=== PATIENT | male | born 1950 | race Two or more races ===

== ENCOUNTER 2022-02-09 12:11 | Inpatient (IN) | payer MEDICARE ==
[~2022-02-09] VITALS: Ht 167.6 cm; Wt 75.7 kg
--- NOTE | 2022-02-09 12:22 | NUR ---
[id number] FROM HOME C/O HEADCHE, NAUSEA, DIZZINESS P/S 8/10 SINCE LAST NIGHT. TO ER BED 12.
--- NOTE | 2022-02-09 12:50 | NUR ---
DR DONAHUE AT BEDSIDE FOR EVAL
[2022-02-09] MEDS ORDERED: ONDANSETRON HCL/PF 4 MG/2 ML VIAL IVP ONE (13:00)
[2022-02-09] MEDS ORDERED: IV NS 0.9% 1,000 ML BAG IV ONE ×2 (13:00→14:00)
[2022-02-09] MEDS ORDERED: MORPHINE SULFATE INJ 2 MG/ML DISP.SYRIN IV ONE (13:00)
[2022-02-09] MEDS ORDERED: MORPHINE SULFATE INJ 2 MG/ML DISP.SYRIN ONE (13:02)
[2022-02-09] MEDS ORDERED: ONDANSETRON HCL/PF 4 MG/2 ML VIAL ONE (13:02)
--- NOTE | 2022-02-09 13:20 | NUR ---
IV LINE ESTABLISHED ON LAC #20, BLOOD DRAWN AND SENT TO LAB
[2022-02-09 13:24] LABS: BASOPHILS % (AUTO) 0.1 % (0.0-2.0); HEMATOCRIT 36 % (39-51); HEMOGLOBIN 12.4 g/dL (13.5-17.5); LYMPHOCYTES # (AUTO) 0.4 K/uL (0.8-4.8); LYMPHOCYTES % (AUTO) 5.1 % (20.0-44.0); MEAN CORPUSCULAR HGB CONC 34 g/dl (31.0-36.0); MEAN CORPUSCULAR VOLUME 86 fL (80-96); MONOCYTES # (AUTO) 0.6 K/uL (0.1-1.30); MONOCYTES % (AUTO) 7.2 % (2.0-12.0); NEUTROPHILS # (AUTO) 7.7 K/uL (1.8-8.9); NEUTROPHILS % (AUTO) 87.6 % (43.0-81.0); PLATELET COUNT (AUTO) 223 K/uL (150-450); RED BLOOD CELL COUNT(AUTO) 4.23 MIL/uL (4.5-6.0); WHITE BLOOD COUNT (AUTO) 8.8 K/uL (4.3-11.0)
[2022-02-09 13:41] LABS: ALANINE AMINOTRANSFERASE 32 U/L (12-78); ALBUMIN 4.2 g/dL (3.4-5.0); ALKALINE PHOSPHATASE 39 U/L (46-116); ASPARTATE AMINOTRANSFERASE 28 U/L (15-37); BILIRUBIN,DIRECT 0.3 mg/dL (0.0-0.2); BILIRUBIN,TOTAL 0.8 mg/dL (0.2-1.0); CALCIUM, SERUM 8.6 mg/dL (8.5-10.1); GLUCOSE 222 mg/dL (74-106); LIPASE 153 U/L (73-393); UREA NITROGEN, BLOOD 7 mg/dL (7-18)
[2022-02-09 13:45] LABS: CARBON DIOXIDE 25 mmol/L (21-32); POTASSIUM 4.4 mmol/L (3.5-5.1)
[2022-02-09 13:50] LABS: CHLORIDE 76 mmol/L (98-107); SODIUM SERUM 107 mmol/L (136-145)
--- NOTE | 2022-02-09 13:51 | NUR ---
NA-107, CL-76; DR DONAHUE MADE AWARE
--- NOTE | 2022-02-09 14:34 | NUR ---
COVID SWAB COLLECTED AND SENT TO LAB
--- NOTE | 2022-02-09 14:40 | NUR ---
PT TAKEN TO RADIOLOGY FOR CT
[2022-02-09] MEDS ORDERED: IV NS 0.9% 250 ML IV ONE (14:41)
[2022-02-09] MEDS ORDERED: IOHEXOL-300 100 ML VIAL IV ONE (14:41)
[2022-02-09] MEDS ORDERED: CT SWABBABLE VALVE TRANS SET 1 EA INFUS.SET MC ONE (14:41)
--- NOTE | 2022-02-09 15:14 | NUR ---
[facility] called, on hold for dr. johnson.
--- NOTE | 2022-02-09 15:15 | NUR ---
awaiting hospitalist call back.
--- NOTE | 2022-02-09 15:20 | NUR ---
SEEN BY DR NOVAK
--- NOTE | 2022-02-09 15:38 | NUR ---
called nursing supervisor anodizing for telemetry bed.
[2022-02-09] MEDS ORDERED: BENA20TA9 PO (15:50)
[2022-02-09] MEDS ORDERED: CHOL4PAC PO (15:50)
[2022-02-09] MEDS ORDERED: TAMS-12 PO (15:50)
[2022-02-09] MEDS ORDERED: SITA100T PO (15:50)
[2022-02-09] MEDS ORDERED: ATOR40TA PO (15:50)
[2022-02-09] MEDS ORDERED: PIOG45TA5 PO (15:50)
[2022-02-09 16:12] LABS: CALCIUM, SERUM 8.4 mg/dL (8.5-10.1); CREATININE 1.1 mg/dL (0.6-1.3); POTASSIUM 4.3 mmol/L (3.5-5.1)
--- NOTE | 2022-02-09 17:13 | NUR ---
PT'S ADDRESS: [address] [place] [address] [id number] [facility] [id number]
--- NOTE | 2022-02-09 17:21 | NUR ---
PT STATES THAT HE IS SINGLE AND DOES NOT HAVE ANY FAMILY.
[2022-02-09] MEDS ORDERED: HYDROCODONE/APAP 5/325MG TABLET PO PRN (17:30)
[2022-02-09] MEDS ORDERED: MAGNESIUM HYDROXIDE 30 ML UDC PO PRN (17:30)
[2022-02-09] MEDS ORDERED: Z GUARD REMEDY 4 OZ OINT TP PRN (17:30)
[2022-02-09] MEDS ORDERED: MAG HYDROX/AL HYDROX/SIMETH 30 ML UDC PO PRN (17:30)
[2022-02-09] MEDS ORDERED: DEXTROSE 50%-WATER 50 ML DISP.SYRIN IV PRN (17:30)
[2022-02-09] MEDS ORDERED: ONDANSETRON HCL/PF 4 MG/2 ML VIAL IVP PRN (17:30)
[2022-02-09] MEDS ORDERED: IV NS 0.9% 1,000 ML IV PRN (17:30)
[2022-02-09] MEDS ORDERED: ACETAMINOPHEN 325 MG TABLET PO PRN (17:30)
--- NOTE | 2022-02-09 17:37 | NUR ---
CALLED JANET JAMESON [phone], LEFT VOICEMAIL
[2022-02-09] MEDS: BLOOD SUGAR DIAGNOSTIC 1 EACH STRIP IN SCH ×2 (17:38→23:11)
--- NOTE | 2022-02-09 18:27 | NUR ---
TRIED TO CALL JOSE JAMESON [phone], PHONE NUMBER NOT WORKING.
--- NOTE | 2022-02-09 18:43 | NUR ---
DINNER TRAY PROVIDED TO PTCHELSI
--- NOTE | 2022-02-09 19:02 | NUR ---
RECEIVED ORDER FROM DR. MORGAN: D/C NS AND CHANGE TO 3%NS AT 50ML/HR, ORDER READ BACK AND VERIFIED
[2022-02-09] MEDS ORDERED: OLANZAPINE 10 MG VIAL IM ONE ×2 (19:07→19:30)
[2022-02-09] MEDS ORDERED: SODIUM CHLORIDE 3% IV PRN (19:30)
--- NOTE | 2022-02-09 19:31 | NUR ---
IFC INSERTED F16
[2022-02-09 20:11] LABS: CREATININE, URINE 56.7 MG/DL (30.0-125.0)
[2022-02-09] MEDS ORDERED: TAMSULOSIN 0.4 MG CAP.SR.24H ONE (23:09)
[2022-02-09] MEDS ORDERED: ATORVASTATIN 40 MG TABLET ONE (23:09)
[2022-02-09] MEDS: TAMSULOSIN 0.4 MG CAP.SR.24H PO SCH (23:14)
[2022-02-09] MEDS: ATORVASTATIN 40 MG TABLET PO SCH (23:14)
--- NOTE | 2022-02-09 23:27 | NUR ---
OFFERED PT WATER, PT TOLERATED WELL.
[2022-02-09] MEDS ORDERED: IV Sodium Chloride 3% 500 ML 500 ML IV ONE (23:29)
--- NOTE | 2022-02-09 23:30 | NUR ---
0.3% NACL STARTED. ONLY 500ML/BAG SUPPLY GIVEN BY KINESIOLOGIST VIV WE DONT HAVE AVAILABLE AT HOSPITAL.
--- NOTE | 2022-02-10 02:00 | NUR ---
RESTRAINTS REMOVED 2 STAFF ASSISTED PT TO RESTROOM BECAUSE HE SAID HE WANTS TO PASS STOOL. WHILE IN RESTROOM, PT DOESNT WANT TO PASS STOOL. HE JUST WANTS TO GET OUT OF HOSPITAL. ASSISTED PT BACK TO BED. HE TRIED TO STAND UP AND LEAVE. PLACED HIM COMFORTABLY IN BED AND ATTACHED TO MONITOR.
[2022-02-10 05:05] LABS: BASOPHILS % (AUTO) 0.1 % (0.0-2.0); HEMATOCRIT 33 % (39-51); HEMOGLOBIN 11.3 g/dL (13.5-17.5); LYMPHOCYTES # (AUTO) 0.6 K/uL (0.8-4.8); LYMPHOCYTES % (AUTO) 4.9 % (20.0-44.0); MEAN CORPUSCULAR HGB CONC 34 g/dl (31.0-36.0); MEAN CORPUSCULAR VOLUME 86 fL (80-96); MONOCYTES # (AUTO) 1.2 K/uL (0.1-1.30); MONOCYTES % (AUTO) 9.8 % (2.0-12.0); NEUTROPHILS # (AUTO) 10.7 K/uL (1.8-8.9); NEUTROPHILS % (AUTO) 85.2 % (43.0-81.0); PLATELET COUNT (AUTO) 197 K/uL (150-450); RED BLOOD CELL COUNT(AUTO) 3.87 MIL/uL (4.5-6.0); WHITE BLOOD COUNT (AUTO) 12.6 K/uL (4.3-11.0)
[2022-02-10 05:21] LABS: CALCIUM, SERUM 8.4 mg/dL (8.5-10.1); CREATININE 1.2 mg/dL (0.6-1.3); MAGNESIUM 1.5 mg/dL (1.8-2.4); PHOSPHORUS 2.9 mg/dL (2.5-4.9); POTASSIUM 4.1 mmol/L (3.5-5.1)
[2022-02-10] MEDS: BLOOD SUGAR DIAGNOSTIC 1 EACH STRIP IN SCH ×4 (07:41→21:51)
[2022-02-10] MEDS ORDERED: PANTOPRAZOLE 40 MG TABLET.DR PO ONE (07:47)
[2022-02-10] MEDS: PANTOPRAZOLE 40 MG TABLET.DR PO SCH (07:47)
[2022-02-10] MEDS ORDERED: IV D5W 500 ML IV ONE (08:00)
--- NOTE | 2022-02-10 08:34 | NUR ---
BED 109
--- NOTE | 2022-02-10 08:43 | NUR ---
REPORT GIVEN TO ARNULFO MELCHOR FOR CARMEN
[2022-02-10 09:15] VITALS: BP 131/58
--- NOTE | 2022-02-10 09:15 | NUR ---
RN NOTES PATIENT WAS ADMITTED FROM ER ON Dx OF SEVERE HYPOTENSION. PATIENT A/O X2, HARD TO FOLLOW DIRECTION. COUGHING, SPUTUM WHITE COLOR. PATIENT ROOM AIR, NO ACUTE RESPIRATORY DISTRESS, VS TAKEN BP-131/58, P-107,R-22, O2-97% ROOM AIR, T-97.8F. PATIENT REFUSED PAIN. DUBON DRAINING VIA GRAVITY PINK COLOR URINE 1650 ML.IV ACCESS N LAC AREA, INFUSING D5 100 ML X1 500ML. SKIN ASSESSMENT DONE INTACT. CALL LIGHT WITHIN TOO REACH. BED ALARM ON. PATIENT ABLE TO TURN AND REPOSTION SELF IN THE BED. WILL FOLLOW UP. PATIENT KEEP TRYING TO GET OUT OF BED. SAFETY PRECAUTION MAINTAINED ALL THE TIME.
--- NOTE | 2022-02-10 09:19 | NUR ---
PT TRANSFERRED TO 109 VIA APARNA QUILES PROTOCOL. WARM HANDOFF GIVEN TO RN ASSIGNED.
[2022-02-10] MEDS: Magnesium 1GM/D5W 100ML PREMIX 100 ML IV SCH ×2 (11:01→12:03)
[2022-02-10] MEDS: LISINOPRIL (10MG) 10 MG TABLET PO SCH (11:01)
[2022-02-10] MEDS: LINAGLIPTIN 5 MG TABLET PO SCH (11:01)
[2022-02-10] MEDS: CHOLESTYRAMINE/ASPARTAME 4 G/PKT PACKET PO SCH ×2 (11:19→17:08)
[2022-02-10 12:00] VITALS: BP 131/67
[2022-02-10] MEDS: INSULIN REGULAR, HUMAN 100 UNIT/ML 3 ML VIAL SQ PRN ×2 (12:11→22:04)
[2022-02-10 13:00] VITALS: BP 131/67
--- NOTE | 2022-02-10 13:36 | NUR ---
rn notes Seen patient via hospitalist, get verbal order CT of head WO contrast, order taken an carried out.
--- NOTE | 2022-02-10 15:36 | NUR ---
RN NOTES CT OF HEAD WO CONTRAST DONE, PATIENT BACK TO THE BED. STABLE.
[2022-02-10 17:00] VITALS: BP 115/45
[2022-02-10] MEDS: PIOGLITAZONE HCL 15 MG TABLET PO SCH (17:08)
--- NOTE | 2022-02-10 18:08 | NUR ---
RN NOTES PM CARE DONE, DUE MEDICATION ADMINISTERED, VSS. PATIENT TOLERATED DINNER WELL SELF. PATIENT HIGH FALL RISK, BED ALARM ON URIN OUTPUT WAS 1900ML, CALL LIGHT WITH TO REACH. ENDORSED ONCOMING NURSE CARMEN.
--- NOTE | 2022-02-10 19:30 | NUR ---
PT RECEIVED FOR CONTINUITY OF CARE. PATIENT ASLEEP IN NO S/SX OF ACUTE DISTRESS AT THIS TIME; CURRENTLY ON RA. TOLERATING WELL. WITH IV ACCESS ON LAC G#20, ALSO HAS ZULAY MIDLINE. WILL ENSURE SAFETY MEASURES WITHIN THE SHIFT. PATIENT BED ALARM IS ON. HEAD OF BED ELEVATED. BED IS LOCKED, IN LOWEST POSITION AND SIDE RAILS UP. CALL LIGHT WITHIN REACH OF THE PATIENT. WILL CONTINUE TO MONITOR AND REASSESS FOR ANY CHANGES AND WILL CARRY OUT ANY ONGOING AND ACTIVE MD ORDER.
[2022-02-10 21:00] VITALS: BP 107/41
[2022-02-10] MEDS: ATORVASTATIN 40 MG TABLET PO SCH (21:51)
[2022-02-10] MEDS: TAMSULOSIN 0.4 MG CAP.SR.24H PO SCH (21:51)
[2022-02-10] MEDS: ZOLPIDEM TARTRATE 5 MG TABLET PO PRN (22:06)
[2022-02-11 01:00] VITALS: BP 116/71
[2022-02-11 05:00] VITALS: BP 99/49
--- NOTE | 2022-02-11 06:58 | NUR ---
PT ASLEEP IN NO S/SX OF ACUTE DISTRESS AT THIS TIME; CURRENTLY ON RA. TOLERATING WELL. WITH IV ACCESS ON LAC G#20, ALSO HAS ZULAY MIDLINE. ENSURED SAFETY MEASURES WITHIN THE SHIFT. PATIENT BED ALARM IS ON. HEAD OF BED ELEVATED. BED IS LOCKED, IN LOWEST POSITION AND SIDE RAILS UP. CALL LIGHT WITHIN REACH OF THE PATIENT. WILL ENDORSE TO NEXT NURSE ON DUTY FOR CONTINUITY OF CARE.
[2022-02-11 07:13] LABS: BASOPHILS % (AUTO) 0.2 % (0.0-2.0); EOSINOPHILS % (AUTO) 0.2 % (0.0-6.0); HEMATOCRIT 37 % (39-51); HEMOGLOBIN 12.3 g/dL (13.5-17.5); LYMPHOCYTES # (AUTO) 1.1 K/uL (0.8-4.8); LYMPHOCYTES % (AUTO) 9.3 % (20.0-44.0); MEAN CORPUSCULAR HGB CONC 33 g/dl (31.0-36.0); MEAN CORPUSCULAR VOLUME 87 fL (80-96); MONOCYTES # (AUTO) 1.1 K/uL (0.1-1.30); MONOCYTES % (AUTO) 9.7 % (2.0-12.0); NEUTROPHILS # (AUTO) 9.3 K/uL (1.8-8.9); NEUTROPHILS % (AUTO) 80.6 % (43.0-81.0); PLATELET COUNT (AUTO) 192 K/uL (150-450); RED BLOOD CELL COUNT(AUTO) 4.22 MIL/uL (4.5-6.0); WHITE BLOOD COUNT (AUTO) 11.6 K/uL (4.3-11.0)
--- NOTE | 2022-02-11 07:31 | NUR ---
RN OPENING NOTES: PATIENT ASLEEP IN NO S/SX OF ACUTE DISTRESS AT THIS TIME; CURRENTLY ON RA, NO SOB NOTED, NOT IN DISTESS, NO FACIAL GRIMACING NOTED. WITH IV ACCESS ON LAC G#20, AND ZULAY MIDLINE. ON TELE MONITOR WITH READING OF SR PAC READING HR=88. SIDE RAILS UPS. BED IN LOWEST POSITION AND SIDE RAILS UP. CALL LIGHT WITHIN REACH OF THE PATIENT. WILL CONTINUE PLAN OF CARE. Addendum: 02/11/22 at 1018 by MARINO ZIEGLER RN F/C PATENT AND INTACT, DRAINING CLEAR YELLOW URINE.
[2022-02-11 07:44] LABS: ALANINE AMINOTRANSFERASE 48 U/L (12-78); ALBUMIN 3.6 g/dL (3.4-5.0); ALKALINE PHOSPHATASE 29 U/L (46-116); ASPARTATE AMINOTRANSFERASE 74 U/L (15-37); BILIRUBIN,TOTAL 0.6 mg/dL (0.2-1.0); CALCIUM, SERUM 8.8 mg/dL (8.5-10.1); CARBON DIOXIDE 24 mmol/L (21-32); CHLORIDE 99 mmol/L (98-107); CREATININE 1.1 mg/dL (0.6-1.3); GLUCOSE 110 mg/dL (74-106); MAGNESIUM 2.1 mg/dL (1.8-2.4); PHOSPHORUS 3.2 mg/dL (2.5-4.9); SODIUM SERUM 132 mmol/L (136-145); TOTAL PROTEIN, SERUM 6.7 g/dL (6.4-8.2); UREA NITROGEN, BLOOD 11 mg/dL (7-18)
[2022-02-11] MEDS: PANTOPRAZOLE 40 MG TABLET.DR PO SCH (07:44)
[2022-02-11] MEDS: BLOOD SUGAR DIAGNOSTIC 1 EACH STRIP IN SCH ×4 (07:49→21:53)
--- NOTE | 2022-02-11 07:50 | NUR ---
RN NOTES MORNING REGULAR INSULIN NOT GIVEN DUE TO SUGAR =116MG/DL. WILL CONTINUE PLAN OF CARE FOR THE PATIENT.
[2022-02-11] MEDS: LINAGLIPTIN 5 MG TABLET PO SCH (08:03)
[2022-02-11] MEDS: PIOGLITAZONE HCL 15 MG TABLET PO SCH (08:03)
[2022-02-11] MEDS: CHOLESTYRAMINE/ASPARTAME 4 G/PKT PACKET PO SCH ×2 (08:03→16:18)
[2022-02-11] MEDS: LISINOPRIL (10MG) 10 MG TABLET PO SCH (08:35)
[2022-02-11 09:00] VITALS: BP 115/51
--- NOTE | 2022-02-11 10:18 | NUR ---
INFORMED CATHY NOVAK MD OF PATIENT SODIUM =132 AND PATIENT REQUESTING F/C TO BE REMOVE, PER MD, NO MORE FLUIDS AND OK TO TAKE OUT F/C. NOTED AND WILL CARRY OUT. WILL CONTINUE PLAN OF CARE.
[2022-02-11] MEDS: INSULIN REGULAR, HUMAN 100 UNIT/ML 3 ML VIAL SQ PRN ×2 (11:36→22:30)
[2022-02-11 13:00] VITALS: BP 109/50
--- NOTE | 2022-02-11 15:10 | NUR ---
RN NOTES PATIENT REFUSED TELE MONITOR TO BE PLACED, INFORMED PATIENT OF THE BENEFITS OF HAVING THE TELE MONITOR, PATIENT STILL REFUSED. WILL CONTINUE PLAN OF CARE FOR THE PATIENT.
--- NOTE | 2022-02-11 16:32 | NUR ---
PATIENT PACING HALLWAY, TELLING STAFF THAT IT IS "TIME FOR HIM TO GO HOME". PATIENT MOVED FROM ROOM 109 TO ROOM 115-1 CLOSER TO THE NURSES STATION TO PREVENT ELOPEMENT. BELONGINGS ACCOUNTED FOR. PATIENT IN ROOM SITTING IN CHAIR WATCHING TELEVISION. WILL CONTINUE PLAN OF CARE AND ANTICIPATE NEEDS.
[2022-02-11 17:00] VITALS: BP 109/55
--- NOTE | 2022-02-11 17:18 | NUR ---
RN NOTES SUGAR CHECK IS 129MG/DL, NO INSULIN GIVEN PER SLIDING SCALE. WILL CONTINUE PLAN OF CARE.
--- NOTE | 2022-02-11 18:34 | NUR ---
RN CLOSING NOTES: PATIENT SITTING IN THE CHAIR, ALERT AND VERBALLY RESPONSIVE, IN NO S/SX OF ACUTE DISTRESS AT THIS TIME; CURRENTLY ON RA SATING @ 97%, NO SOB NOTED, NOT IN DISTESS, DENIES ANY PAIN. NOTED WITH IV ACCESS ON LAC G#20, AND ZULAY MIDLINE, NOTED PATENT AND INTACT, FLUSHES WELL. SAFETY MEASURES CONTINUED. CALL LIGHT WITHIN REACH OF THE PATIENT. WILL ENDORSE TO FREEZER PERSON NURSE FOR CARMEN.
--- NOTE | 2022-02-11 19:30 | NUR ---
PT RECEIVED FOR CONTINUITY OF CARE. PATIENT AWAKE IN NO S/SX OF ACUTE DISTRESS AT THIS TIME; CURRENTLY ON RA. TOLERATING WELL. WITH IV ACCESS ON LAC G#20, ALSO HAS ZULAY MIDLINE. WILL ENSURE SAFETY MEASURES WITHIN THE SHIFT. PATIENT BED ALARM IS ON. HEAD OF BED ELEVATED. BED IS LOCKED, IN LOWEST POSITION AND SIDE RAILS UP. CALL LIGHT WITHIN REACH OF THE PATIENT. WILL CONTINUE TO MONITOR AND REASSESS FOR ANY CHANGES AND WILL CARRY OUT ANY ONGOING AND ACTIVE MD ORDER.
[2022-02-11] MEDS: ZOLPIDEM TARTRATE 5 MG TABLET PO PRN (20:35)
[2022-02-11 21:00] VITALS: BP 151/82
[2022-02-11] MEDS: ATORVASTATIN 40 MG TABLET PO SCH (21:53)
[2022-02-11] MEDS: TAMSULOSIN 0.4 MG CAP.SR.24H PO SCH (21:54)
[2022-02-12 01:00] VITALS: BP 104/40
[2022-02-12 05:00] VITALS: BP 154/74
--- NOTE | 2022-02-12 05:00 | NUR ---
LAC G#20 OUT. REMOVED AND PLACED PRESSURE ON SITE. PT TOLERATED PROCEDURE WELL.
--- NOTE | 2022-02-12 07:03 | NUR ---
RN NOTES RECEIVED PT ON BED, SLEEPING , ON RA, ON TELE SR , NO DISTESS NOTED, R UA MIDLINE CDI, ENSURED SAFETY MEASURES WITHIN THE SHIFT. PATIENT BED ALARM IS ON. HEAD OF BED ELEVATED. BED IS LOCKED, IN LOWEST POSITION AND SIDE RAILS UP x3. CALL LIGHT WITHIN EASY REACH, CONTINUE TO MONITOR
--- NOTE | 2022-02-12 07:33 | NUR ---
PT ASLEEP. IN NO S/SX OF ACUTE DISTRESS AT THIS TIME; CURRENTLY ON RA. TOLERATING WELL. WITH IV ACCESS ON ZULAY MIDLINE. ENSURED SAFETY MEASURES WITHIN THE SHIFT. PATIENT BED ALARM IS ON. HEAD OF BED ELEVATED. BED IS LOCKED, IN LOWEST POSITION AND SIDE RAILS UP. CALL LIGHT WITHIN REACH OF THE PATIENT. WILL ENDORSE TO NEXT NURSE ON DUTY FOR CONTINUITY OF CARE.
[2022-02-12] MEDS: BLOOD SUGAR DIAGNOSTIC 1 EACH STRIP IN SCH ×3 (08:18→18:01)
[2022-02-12] MEDS: LISINOPRIL (10MG) 10 MG TABLET PO SCH (08:19)
[2022-02-12] MEDS: PANTOPRAZOLE 40 MG TABLET.DR PO SCH (08:19)
[2022-02-12] MEDS: LINAGLIPTIN 5 MG TABLET PO SCH (08:19)
[2022-02-12] MEDS: CHOLESTYRAMINE/ASPARTAME 4 G/PKT PACKET PO SCH ×2 (08:22→18:01)
[2022-02-12] MEDS: PIOGLITAZONE HCL 15 MG TABLET PO SCH (08:26)
[2022-02-12 09:00] VITALS: BP 134/67
--- NOTE | 2022-02-12 10:00 | NUR ---
RN NOTES PT REFUSED TO KEEP TELE ON, WANTS TO LEAVE MD LISA NOTIFIED .
[2022-02-12] MEDS: INSULIN REGULAR, HUMAN 100 UNIT/ML 3 ML VIAL SQ PRN ×2 (11:41→18:00)
[2022-02-12 13:00] VITALS: BP 115/51
[2022-02-12 16:00] VITALS: BP 117/57
--- NOTE | 2022-02-12 18:26 | NUR ---
RN NOTES PT STABLE, AWAITING FOR EMT ,TO BE DISCHARGE TO SNF ,
--- NOTE | 2022-02-12 18:45 | NUR ---
RN NOTES REPORT GIVEN TO SNF , IV D/TRISTA . PT LEFT THE FLOOR ACCOMPANIED BY EMT IN STABLE CONDITION TO SNF .
== END 2022-02-12 18:41 | DRG 640 ==
LOC: ER 12:18 → TRANSITION 17:03 → TELE 02-10 07:50 → TRANSITION 02-10 07:56 → TELE1 02-10 08:33
PROC: 05HB33Z Insertion of Infusion Device into Right Basilic Vein, Percutaneous Approach (ICD-10-PCS; principal; 2022-02-10)
DX: E87.1 Hypo-osmolality and hyponatremia (principal); G93.41 Metabolic encephalopathy; E11.9 Type 2 diabetes mellitus without complications; Z20.822 Contact with and (suspected) exposure to COVID-19; I10 Essential (primary) hypertension; H91.90 Unspecified hearing loss, unspecified ear; Z79.84 Long term (current) use of oral hypoglycemic drugs; Z79.899 Other long term (current) drug therapy; N40.0 Benign prostatic hyperplasia without lower urinary tract symptoms; K82.8 Other specified diseases of gallbladder; D63.8 Anemia in other chronic diseases classified elsewhere
CPT/HCPCS: 36415; 70450-TC; 71045-TC; 80048-TC; 80053-TC; 80076-TC; 82570-TC; 82962-TC; 83690-TC; 83735-TC; 84100-TC; 84300-TC; 84484-TC; 85025-TC; 87081-TC; 97116-TC; 97530-TC; C9803; G0378; J1815; J2270; J2405; J3475; J3490; J7030; J7050; J7060; Q9967

== ENCOUNTER 2022-04-14 18:13 | Emergency (ER) | payer MEDICARE, OTHER ==
[~2022-04-14] VITALS: Ht 167.6 cm; Wt 74.8 kg
[~2022-04-14 18:13] MED LIST: ATOR40TA PO; BENA20TA9 PO; CHOL4PAC PO; PIOG45TA5 PO; SITA100T PO; TAMS-12 PO
--- NOTE | 2022-04-14 18:45 | NUR ---
PT ARRIVED C/O CHEST PAIN PUT ON YOUTH COUNSELOR ARRIVED WITH 20G IN R FOREARM. A/O X4
--- NOTE | 2022-04-14 19:12 | NUR ---
urine collected and sent to lab
[2022-04-14 20:12] LABS: BASOPHILS % (AUTO) 0.3 % (0.0-2.0); EOSINOPHILS % (AUTO) 0.1 % (0.0-6.0); HEMATOCRIT 36 % (39-51); HEMOGLOBIN 11.9 g/dL (13.5-17.5); MEAN CORPUSCULAR HGB CONC 33 g/dl (31.0-36.0); MEAN CORPUSCULAR VOLUME 89 fL (80-96); MONOCYTES # (AUTO) 0.7 K/uL (0.1-1.30); MONOCYTES % (AUTO) 10.7 % (2.0-12.0); NEUTROPHILS # (AUTO) 5.2 K/uL (1.8-8.9); NEUTROPHILS % (AUTO) 74.9 % (43.0-81.0); PLATELET COUNT (AUTO) 185 K/uL (150-450); RED BLOOD CELL COUNT(AUTO) 4.06 MIL/uL (4.5-6.0)
[2022-04-14 22:12] LABS: CARBON DIOXIDE 24 mmol/L (21-32); CHLORIDE 95 mmol/L (98-107); GLUCOSE 348 mg/dL (74-106); SODIUM SERUM 129 mmol/L (136-145)
[2022-04-14 22:13] LABS: ALKALINE PHOSPHATASE 58 U/L (46-116); BILIRUBIN,DIRECT 0.2 mg/dL (0.0-0.2); BILIRUBIN,TOTAL 0.4 mg/dL (0.2-1.0); CALCIUM, SERUM 8.1 mg/dL (8.5-10.1); CREATININE 1.2 mg/dL (0.6-1.3); UREA NITROGEN, BLOOD 12 mg/dL (7-18)
[2022-04-14 22:14] LABS: ALANINE AMINOTRANSFERASE 18 U/L (12-78); ALBUMIN 3.3 g/dL (3.4-5.0); ASPARTATE AMINOTRANSFERASE 14 U/L (15-37); TOTAL PROTEIN, SERUM 6.3 g/dL (6.4-8.2)
[2022-04-14] MEDS ORDERED: INSULIN REGULAR, HUMAN 100 UNIT/ML 10 ML VIAL SQ ONE (22:30)
--- NOTE | 2022-04-14 22:30 | NUR ---
IV removed. Catheter intact and site benign. Pressure and 4x4 applied to site. No bleeding noted.Patient discharged to home in stable condition. Written and verbal after care instructions given. Patient verbalizes understanding of instruction.
[2022-04-14 22:32] VITALS: BP 120/60
== END 2022-04-14 22:30 | disposition home or self-care (01) ==
LOC: ER 19:00
DX: R07.89 Other chest pain (principal); I10 Essential (primary) hypertension; E11.65 Type 2 diabetes mellitus with hyperglycemia; Z79.899 Other long term (current) drug therapy
CPT/HCPCS: 36415; 71045-TC; 80048-TC; 80076-TC; 84484-TC; 85025-TC

== ENCOUNTER 2022-06-15 23:34 | Emergency (ER) | payer MEDICARE, OTHER ==
[~2022-06-15] VITALS: Ht 167.6 cm; Wt 68.0 kg
--- NOTE | 2022-06-16 01:55 | NUR ---
BIBS FOR BILATERAL ANKLE EDEMA AND PAIN X 4 DAYS. REPORTED FALL EPISODE
[2022-06-16] MEDS ORDERED: ACETAMINOPHEN 325 MG TABLET ONE (02:25)
--- NOTE | 2022-06-16 02:26 | NUR ---
JEWEL GAUGER AT PT'S BEDSIDE
[2022-06-16] MEDS ORDERED: ACETAMINOPHEN 325 MG TABLET PO ONE (02:30)
--- NOTE | 2022-06-16 03:00 | NUR ---
RAC #20G S/L BLOOD COLLECTED AND SENT TO LAB
[2022-06-16 03:14] LABS: BASOPHILS # (AUTO) 0.1 K/uL (0.0-0.2); BASOPHILS % (AUTO) 0.7 % (0.0-2.0); EOSINOPHILS % (AUTO) 0.4 % (0.0-6.0); HEMATOCRIT 36 % (39-51); HEMOGLOBIN 12.1 g/dL (13.5-17.5); LYMPHOCYTES # (AUTO) 1.7 K/uL (0.8-4.8); LYMPHOCYTES % (AUTO) 16.7 % (20.0-44.0); MEAN CORPUSCULAR HGB CONC 33 g/dl (31.0-36.0); MEAN CORPUSCULAR VOLUME 87 fL (80-96); MONOCYTES % (AUTO) 10.1 % (2.0-12.0); NEUTROPHILS # (AUTO) 7.2 K/uL (1.8-8.9); NEUTROPHILS % (AUTO) 72.1 % (43.0-81.0); PLATELET COUNT (AUTO) 278 K/uL (150-450); RED BLOOD CELL COUNT(AUTO) 4.21 MIL/uL (4.5-6.0)
[2022-06-16 03:38] LABS: ALANINE AMINOTRANSFERASE 35 U/L (12-78); ALBUMIN 3.9 g/dL (3.4-5.0); ALKALINE PHOSPHATASE 82 U/L (46-116); ASPARTATE AMINOTRANSFERASE 40 U/L (15-37); BILIRUBIN,DIRECT 0.3 mg/dL (0.0-0.2); BILIRUBIN,TOTAL 0.9 mg/dL (0.2-1.0); CALCIUM, SERUM 9.1 mg/dL (8.5-10.1); CARBON DIOXIDE 26 mmol/L (21-32); CHLORIDE 101 mmol/L (98-107); CREATININE 1.2 mg/dL (0.6-1.3); GLUCOSE 237 mg/dL (74-106); POTASSIUM 3.9 mmol/L (3.5-5.1); SODIUM SERUM 136 mmol/L (136-145); TOTAL PROTEIN, SERUM 7.7 g/dL (6.4-8.2); UREA NITROGEN, BLOOD 23 mg/dL (7-18)
[2022-06-16] MEDS ORDERED: FUROSEMIDE 40 MG/4 ML VIAL ONE (03:57)
[2022-06-16] MEDS ORDERED: FUROSEMIDE 40 MG/4 ML VIAL IV ONE (04:00)
[2022-06-16] MEDS ORDERED: FURO-145 PO (06:50)
--- NOTE | 2022-06-16 06:59 | NUR ---
Patient discharged to home in stable condition. Written and verbal after care instructions given. Patient verbalizes understanding of instruction. IV removed. Catheter intact and site benign. Pressure and 4x4 applied to site. No bleeding noted.
[2022-06-16 07:00] VITALS: BP 108/66
== END 2022-06-16 07:05 | disposition home or self-care (01) ==
LOC: ER 23:54
DX: S70.01XA Contusion of right hip, initial encounter (principal); R60.0 Localized edema; I10 Essential (primary) hypertension; E11.9 Type 2 diabetes mellitus without complications; Z60.2 Problems related to living alone; Z79.899 Other long term (current) drug therapy; W01.0XXA Fall on same level from slipping, tripping and stumbling without subsequent striking against object, initial encounter; Y93.89 Activity, other specified; Y92.009 Unspecified place in unspecified non-institutional (private) residence as the place of occurrence of the external cause; Y99.8 Other external cause status
CPT/HCPCS: 99285; 96374; 71045; 93005; 73502; 85025; 80048; 80076; 36415; 84484; 83880; J1940

== ENCOUNTER 2022-06-19 14:50 | Emergency (ER) | payer MEDICARE, OTHER ==
[~2022-06-19] VITALS: Ht 167.6 cm; Wt 68.5 kg
[~2022-06-19 14:50] MED LIST changes: +FURO-145 PO
--- NOTE | 2022-06-19 15:05 | NUR ---
BIB RA 102 FROM [facility],C/O HEADACHE AND CHEST PAIN,INITIALLY A MIS- SING PERSON, FAMILY WAS CONTACTED AND REFUSED HIM
[2022-06-19 15:42] LABS: BASOPHILS % (AUTO) 0.3 % (0.0-2.0); EOSINOPHILS % (AUTO) 0.4 % (0.0-6.0); HEMATOCRIT 36 % (39-51); HEMOGLOBIN 11.6 g/dL (13.5-17.5); LYMPHOCYTES % (AUTO) 11.4 % (20.0-44.0); MEAN CORPUSCULAR HGB CONC 32 g/dl (31.0-36.0); MEAN CORPUSCULAR VOLUME 88 fL (80-96); MONOCYTES # (AUTO) 0.9 K/uL (0.1-1.30); MONOCYTES % (AUTO) 10.7 % (2.0-12.0); NEUTROPHILS # (AUTO) 6.5 K/uL (1.8-8.9); NEUTROPHILS % (AUTO) 77.2 % (43.0-81.0); PLATELET COUNT (AUTO) 259 K/uL (150-450); RED BLOOD CELL COUNT(AUTO) 4.07 MIL/uL (4.5-6.0); WHITE BLOOD COUNT (AUTO) 8.4 K/uL (4.3-11.0)
--- NOTE | 2022-06-19 15:42 | NUR ---
covid swab taken
--- NOTE | 2022-06-19 15:52 | NUR ---
MOVE SHEET SUBMITTED.
[2022-06-19 16:01] LABS: CALCIUM, SERUM 8.6 mg/dL (8.5-10.1); CARBON DIOXIDE 29 mmol/L (21-32); CHLORIDE 99 mmol/L (98-107); CREATININE 1.2 mg/dL (0.6-1.3); POTASSIUM 4.1 mmol/L (3.5-5.1); SODIUM SERUM 134 mmol/L (136-145); UREA NITROGEN, BLOOD 18 mg/dL (7-18)
[2022-06-19 16:17] LABS: GLUCOSE 453 mg/dL (74-106)
--- NOTE | 2022-06-19 16:40 | NUR ---
WAITING FOR ER MD TO PRESENT PT. TO [facility] ADMITTING PROVIDER. [facility]
--- NOTE | 2022-06-19 17:57 | NUR ---
Patient does not wish to proceed with medical care recommended by Dr. BHATIA. Patient given information related to possible complications, up to and including , which could occur as a result of leaving the hospital at this time. Patient verbalizes understanding of risks involved due to leaving against medical advice. Patient has signed AMA form.
[2022-06-19 17:59] VITALS: BP 125/71
[2022-06-19] MEDS ORDERED: IV NS 0.9% 1,000 ML IV ONE (18:00)
[2022-06-19] MEDS ORDERED: ASPIRIN 81 MG TAB.CHEW PO ONE (18:00)
[2022-06-19] MEDS ORDERED: INSULIN REGULAR, HUMAN 100 UNIT/ML 10 ML VIAL SQ ONE (18:00)
== END 2022-06-19 18:01 | disposition left against medical advice (07) ==
LOC: ER 14:52
DX: R07.89 Other chest pain (principal); R51.9 Headache, unspecified; I10 Essential (primary) hypertension; E11.65 Type 2 diabetes mellitus with hyperglycemia; E78.5 Hyperlipidemia, unspecified; Z60.2 Problems related to living alone; Z79.899 Other long term (current) drug therapy; Z20.822 Contact with and (suspected) exposure to COVID-19
CPT/HCPCS: 36415; 71045-TC; 80048-TC; 84484-TC; 85025-TC; C9803

== ENCOUNTER 2022-06-23 03:00 | Emergency (ER) | payer MEDICARE, OTHER ==
[~2022-06-23] VITALS: Ht 167.6 cm; Wt 68.0 kg
[2022-06-23] MEDS ORDERED: KETOROLAC TROMETHAMINE INJ 60 MG/2 ML VIAL IM ONE (04:30)
[2022-06-23] MEDS ORDERED: KETOROLAC TROMETHAMINE INJ 30 MG/ML VIAL ONE (04:32)
--- NOTE | 2022-06-23 07:47 | NUR ---
Patient discharged to home in stable condition. Written and verbal after care instructions given. Patient verbalizes understanding of instruction.
[2022-06-23 07:48] VITALS: BP 127/80
== END 2022-06-23 07:49 | disposition home or self-care (01) ==
LOC: ER 03:31
DX: M54.50 Low back pain, unspecified (principal); M25.551 Pain in right hip; I10 Essential (primary) hypertension; E78.5 Hyperlipidemia, unspecified; E11.9 Type 2 diabetes mellitus without complications; Z60.2 Problems related to living alone; Z79.899 Other long term (current) drug therapy; W01.0XXA Fall on same level from slipping, tripping and stumbling without subsequent striking against object, initial encounter; Y93.89 Activity, other specified; Y92.89 Other specified places as the place of occurrence of the external cause; Y99.8 Other external cause status
CPT/HCPCS: 99283; 96372; 73501; J1885

== ENCOUNTER 2022-06-25 19:45 | Emergency (ER) | payer MEDICARE, OTHER ==
[~2022-06-25] VITALS: Ht 165.1 cm; Wt 60.8 kg
--- NOTE | 2022-06-25 23:15 | NUR ---
Pt is noted in bed alert, responsive as he came from home C/O Blood Sugar High but did not chsck before coming , also C/O off Right Femur pain. Pt care continue as MD at bedside.
[2022-06-25] MEDS ORDERED: ACETAMINOPHEN ES 500 MG TABLET ONE (23:26)
[2022-06-25] MEDS ORDERED: ACETAMINOPHEN ES 500 MG TABLET PO ONE (23:30)
[2022-06-25] MEDS ORDERED: IV NS 0.9% 1,000 ML BAG IV ONE (23:30)
--- NOTE | 2022-06-25 23:35 | NUR ---
Pt care continue with he been medicated with Tyleno 100mg PO for pain, Left Forarm IV INSETED #20G and X-Ray off Right Femur done. Pt care continue.
--- NOTE | 2022-06-25 23:42 | NUR ---
PEST MANAGEMENT SUPERVISOR AT BEDSIDE
[2022-06-26 00:21] LABS: BASOPHILS % (AUTO) 0.4 % (0.0-2.0); EOSINOPHILS % (AUTO) 0.5 % (0.0-6.0); HEMATOCRIT 42 % (39-51); HEMOGLOBIN 13.9 g/dL (13.5-17.5); LYMPHOCYTES # (AUTO) 1.1 K/uL (0.8-4.8); LYMPHOCYTES % (AUTO) 14.8 % (20.0-44.0); MEAN CORPUSCULAR HGB CONC 33 g/dl (31.0-36.0); MEAN CORPUSCULAR VOLUME 86 fL (80-96); MONOCYTES # (AUTO) 0.8 K/uL (0.1-1.30); MONOCYTES % (AUTO) 10.2 % (2.0-12.0); NEUTROPHILS # (AUTO) 5.6 K/uL (1.8-8.9); NEUTROPHILS % (AUTO) 74.1 % (43.0-81.0); PLATELET COUNT (AUTO) 324 K/uL (150-450); RED BLOOD CELL COUNT(AUTO) 4.94 MIL/uL (4.5-6.0); WHITE BLOOD COUNT (AUTO) 7.5 K/uL (4.3-11.0)
[2022-06-26 00:38] LABS: CALCIUM, SERUM 9.2 mg/dL (8.5-10.1); CARBON DIOXIDE 31 mmol/L (21-32); CHLORIDE 96 mmol/L (98-107); CREATININE 1.2 mg/dL (0.6-1.3); GLUCOSE 325 mg/dL (74-106); POTASSIUM 3.7 mmol/L (3.5-5.1); SODIUM SERUM 132 mmol/L (136-145); UREA NITROGEN, BLOOD 21 mg/dL (7-18)
[2022-06-26 00:45] LABS: ALANINE AMINOTRANSFERASE 26 U/L (12-78); ALBUMIN 4.1 g/dL (3.4-5.0); ALKALINE PHOSPHATASE 112 U/L (46-116); ASPARTATE AMINOTRANSFERASE 17 U/L (15-37); BILIRUBIN,DIRECT 0.2 mg/dL (0.0-0.2); BILIRUBIN,TOTAL 0.5 mg/dL (0.2-1.0); LIPASE 256 U/L (73-393); TOTAL PROTEIN, SERUM 8.6 g/dL (6.4-8.2)
[2022-06-26 01:15] LABS: BILIRUBIN,URINE NEGATIVE (NEGATIVE); COLOR,URINE YELLOW (YELLOW); LEUKOCYTE ESTERASE ,URINE NEGATIVE (NEGATIVE); NITRITE, URINE NEGATIVE (NEGATIVE); PH,URINE 6.5 (5.0-8.0); PROTEIN,URINE NEGATIVE (NEGATIVE); UGLUCOSE 3+ mg/dL (NEGATIVE)
[2022-06-26 01:48] LABS: BACTERIA,URINE Rare /HPF (None Seen); RBC,URINE 0-2 /HPF (0-2); WBC,URINE 0-2 /HPF (0-3)
[2022-06-26 01:49] LABS: SQUAMOUS EPITHELIAL CELL,UR Few /HPF (None Seen)
--- NOTE | 2022-06-26 02:07 | NUR ---
PT TAKEN TO CT VIA KB
--- NOTE | 2022-06-26 02:19 | NUR ---
CAME BACK FROM CT DEPT
--- NOTE | 2022-06-26 03:30 | NUR ---
Pt resting as he care continue while monitor as awaits test results.
--- NOTE | 2022-06-26 05:48 | NUR ---
ACCUCHECK 270 DR CATHY DIETZ AWARE
--- NOTE | 2022-06-26 05:50 | NUR ---
Pt care continue as Blood Glucose is 270 and no new orders noted at these hour . Pt care continue.
--- NOTE | 2022-06-26 07:00 | NUR ---
Patient discharged to home in stable condition. Written and verbal after care instructions given. Patient verbalizes understanding of instruction.
[2022-06-26 07:05] VITALS: BP 101/59
== END 2022-06-26 07:07 | disposition home or self-care (01) ==
LOC: ER 19:47
DX: S70.11XA Contusion of right thigh, initial encounter (principal); E11.65 Type 2 diabetes mellitus with hyperglycemia; I10 Essential (primary) hypertension; Z79.899 Other long term (current) drug therapy; Z60.2 Problems related to living alone; X58.XXXA Exposure to other specified factors, initial encounter; Y93.89 Activity, other specified; Y92.89 Other specified places as the place of occurrence of the external cause; Y99.8 Other external cause status
CPT/HCPCS: 99285; 96360; 73552; 85025; 80048; 83690; 80076; 36415; 72192; 81001; 82962; J7030; A4223

== ENCOUNTER 2022-06-30 21:10 | Inpatient (IN) | payer MEDICARE, OTHER ==
[~2022-06-30] VITALS: Ht 167.6 cm; Wt 64.0 kg
[2022-06-30] MEDS ORDERED: ASPIRIN 81 MG TAB.CHEW PO ONE (21:30)
[2022-06-30] MEDS ORDERED: CEPHALEXIN MONOHYDRATE 500 MG CAPSULE PO ONE ×2 (21:30→21:53)
--- NOTE | 2022-06-30 21:32 | NUR ---
SOCIAL WORK MANAGER AT PT'S BEDSIDE
--- NOTE | 2022-06-30 21:32 | NUR ---
OUTER DIAMETER GRINDER TOOL AT PT'S BEDSIDE
[2022-06-30] MEDS ORDERED: ASPIRIN 81 MG TAB.CHEW ONE (21:54)
[2022-06-30 22:31] LABS: CALCIUM, SERUM 9.1 mg/dL (8.5-10.1); CARBON DIOXIDE 26 mmol/L (21-32); CHLORIDE 99 mmol/L (98-107); CREATININE 1.2 mg/dL (0.6-1.3); GLUCOSE 292 mg/dL (74-106); POTASSIUM 4.1 mmol/L (3.5-5.1); SODIUM SERUM 135 mmol/L (136-145); UREA NITROGEN, BLOOD 20 mg/dL (7-18)
--- NOTE | 2022-06-30 22:32 | NUR ---
TELESALES SUPERVISOR AT PT'S BEDSIDE
--- NOTE | 2022-06-30 22:44 | NUR ---
informed MD that patient is complaining of headache, chest pain and leg pain, received orders for morphine.
[2022-06-30] MEDS ORDERED: MORPHINE SULFATE INJ 2 MG/ML DISP.SYRIN ONE (22:46)
[2022-06-30] MEDS ORDERED: MORPHINE SULFATE INJ 2 MG/ML DISP.SYRIN IV ONE (23:00)
[2022-06-30 23:01] LABS: BASOPHILS % (AUTO) 0.2 % (0.0-2.0); EOSINOPHILS % (AUTO) 0.2 % (0.0-6.0); HEMATOCRIT 39 % (39-51); HEMOGLOBIN 12.4 g/dL (13.5-17.5); LYMPHOCYTES # (AUTO) 1.4 K/uL (0.8-4.8); LYMPHOCYTES % (AUTO) 16.7 % (20.0-44.0); MEAN CORPUSCULAR HGB CONC 32 g/dl (31.0-36.0); MEAN CORPUSCULAR VOLUME 86 fL (80-96); MONOCYTES # (AUTO) 0.7 K/uL (0.1-1.30); MONOCYTES % (AUTO) 9.1 % (2.0-12.0); NEUTROPHILS % (AUTO) 73.8 % (43.0-81.0); PLATELET COUNT (AUTO) 287 K/uL (150-450); RED BLOOD CELL COUNT(AUTO) 4.46 MIL/uL (4.5-6.0); WHITE BLOOD COUNT (AUTO) 8.1 K/uL (4.3-11.0)
--- NOTE | 2022-07-01 00:01 | NUR ---
covid swab done and sent to lab
[2022-07-01] MEDS ORDERED: NITROGLYCERIN 0.4 MG/TAB BOTTLE MC PRN (00:30)
[2022-07-01] MEDS ORDERED: ACETAMINOPHEN 325 MG TABLET PO PRN (00:30)
[2022-07-01] MEDS ORDERED: ONDANSETRON HCL/PF 4 MG/2 ML VIAL IVP PRN (00:30)
[2022-07-01] MEDS ORDERED: Z GUARD REMEDY 4 OZ OINT TP PRN (00:30)
[2022-07-01] MEDS ORDERED: MAGNESIUM HYDROXIDE 30 ML UDC PO PRN (00:30)
[2022-07-01] MEDS ORDERED: MORPHINE SULFATE INJ 2 MG/ML DISP.SYRIN IV PRN (00:30)
[2022-07-01] MEDS ORDERED: MAG HYDROX/AL HYDROX/SIMETH 30 ML UDC PO PRN (00:30)
[2022-07-01] MEDS ORDERED: DEXTROSE 50%-WATER 50 ML DISP.SYRIN IV PRN (00:30)
--- NOTE | 2022-07-01 01:24 | NUR ---
report given to bozena MELCHOR
--- NOTE | 2022-07-01 01:35 | NUR ---
TRANSFERRED PATIENT TO ROOM VIA ACLS PROTOCOL
--- NOTE | 2022-07-01 02:00 | NUR ---
ADMISSION NOTES RECEIVED PT FROM TRANSPORTER FROM ED AND NURSE MORAN. PT ABLE TO WALK FROM RNEY TO BED. A/O X 4, ABLE TO MAKE NEEDS KNOWN. ORIENTED TO STAFF AND UNIT. PT ON ROOM AIR, TOLERATING WELL, BREATHING EVEN AND UNLABORED @ THIS TIME. PT IV ACCESS ON L WRIST #20G SALINE LOCK, PATENT, INTACT AND FLUSHES WELL WITH NO S & SX OF INFILTRATION 2 SITE NOTED. PT HAS EXTERNAL MONITOR WITH A CURRENT OF SINUS RHYTHM HR 75BPM. SKIN IS WARM AND DRY. PHOTOS OF SKIN ON RIGHT FOOT IS TAKEN & FILED ON PT CHART. PT BELONGINGS LISTED & ACCOUNTED FOR, FILED IN THE PT CHART. ALL NEEDS ATTENDED. SAFETY MEASURES INITIATED. BED PLACE IN ITS LOWEST & LOCKED POSITION, SIDE RAILS UP X 2. BEDSIDE TABLE AND CALL LIGHT IS IN EASY REACH. BED ALRM IS ON. WILL CONTINUE TO MONITOR PT ACCORDINGLY.
[2022-07-01 02:41] VITALS: BP 102/67
[2022-07-01] MEDS: ENOXAPARIN SODIUM 40 MG/0.4 ML DISP.SYRIN SQ SCH ×2 (03:22→21:34)
[2022-07-01 04:00] VITALS: BP 121/78
--- NOTE | 2022-07-01 06:29 | NUR ---
RN CLOSING NOTES PT IS ASLEEP COMFORTABLY IN BED. RESPONSIVE AND FOLLOWS VERBAL COMMAND. A/O X 4. NO S & SX OF RESPIRATORY DISTRESS. PT ON RA, TOLERATING WELL, BREATHING EVEN AND UNLABORED @ THIS TIME. PT IV ACCESS PRESENT ON LEFT WRIST #20G SALINE LOCK, PATENT, INTACT, FLUSHES WELL WITH NO S & SX OF INFILTRATION @ SITE NOTED. PT HAS A TECHNOLOGY EDUCATION TEACHER IN PLACED WITH A CURRENT READING OF SR, HR 74 BPM. MEDICATIONS ADMINISTERED ACCORDINGLY PER MD'S ORDER. SAFETY MEASURES IN PLACE WITH BED AT ITS LOWEST & LOCKED POSITION, SIDE RAILS UP X 2, BEDSIDE TABLE & CALL LIGHT IS EASY REACH. BED ALARM IS ON. WILL ENDORSE TO THE NEXT SHIFT FOR CONTINUITY OF CARE.
[2022-07-01] MEDS: BLOOD SUGAR DIAGNOSTIC 1 EACH STRIP VI SCH ×4 (06:33→22:00)
--- NOTE | 2022-07-01 07:52 | NUR ---
OVEN HEATER HELPER OPENING NOTE (DAYSHIFT) Patient observed to be sleeping comfortably without any signs of distress, easily aroused and determined to be alert and oriented x 4. Vital signs stable. Afebrile. Telemetry showing sinus rythym in the 60s. Safety precautions maintained: bed alarm on; bed side rails up x 3; bed brakes locked on; bed in lowest position; and call jeff/light within patient's reach. Will continue to monitor and care for patient per hospitalist's POC.
[2022-07-01 08:07] VITALS: BP 109/60
[2022-07-01] MEDS: BENAZEPRIL HCL 20 MG TABLET PO SCH (08:24)
[2022-07-01] MEDS: FUROSEMIDE 20 MG TABLET PO SCH (08:24)
[2022-07-01] MEDS: HYDROCODONE/APAP 10/325MG TABLET PO PRN ×3 (08:26→21:44)
[2022-07-01] MEDS: INSULIN REGULAR, HUMAN 100 UNIT/ML 3 ML VIAL SQ PRN ×3 (08:56→17:00)
[2022-07-01 11:48] VITALS: BP 105/65
[2022-07-01] MEDS: GABAPENTIN 100 MG CAPSULE PO SCH ×2 (12:19→16:55)
[2022-07-01 15:58] VITALS: BP 108/60
[2022-07-01] MEDS: METOPROLOL TARTRATE 25 MG TABLET PO SCH ×2 (16:55→21:00)
--- NOTE | 2022-07-01 18:57 | NUR ---
SUPERVISOR GROUNDS CLOSING NOTE (DAYSHIFT) Patient observed to be awake, alert, and oriented x 4. Vital signs stable. Afebrile. Telemetry showing sinus rythym in the 60s. Safety precautions maintained: bed alarm on; bed side rails up x 3; bed brakes locked on; bed in lowest position; and call jeff/light within patient's reach. Bilateral leg/foot pain managed with norco tab alternating with morphine IV for break through pain as needed. Will continue to monitor and care for patient per hospitalist's POC.
[2022-07-01 20:00] VITALS: BP 108/60
--- NOTE | 2022-07-01 20:26 | NUR ---
TEMPERATURE CONTROL INSPECTOR OPENING NOTES: RECEIVED PATIENT SLEEP IN BED COMFORTABLY, AROUSABLE TO VERBAL STIMULI, BED IN LOW POSITION CALL LIGHTS WITHIN REACH, NO COMPLAIN OF PAIN AND DISCOMFORT AT THIS TIME, ON ROOM AIR SATURATING WELL, NO SOB WAS OBSERVED, PATIENT ON TELE MONITOR- SR-68, IV LINE AT L WRIST 320SL, PATIENT KEPT CLEAN AND DRY, PLACE COMFORTABLY ON BED, ALL NEEDS MET WILL CONTINUE TO MONITOR
[2022-07-01] MEDS: TAMSULOSIN 0.4 MG CAP.SR.24H PO SCH (21:32)
[2022-07-01] MEDS: ATORVASTATIN 40 MG TABLET PO SCH (21:32)
--- NOTE | 2022-07-01 21:45 | NUR ---
rn notes: wrong documentation for critical labs of hgb-65 and hct-19 documentation intended for patient at 319-1
--- NOTE | 2022-07-01 21:47 | NUR ---
RN NOTES: LOW SYSTOLIC BP BLOOD PRESSURE -108/60, WILL CONTINUE TO MONITOR.
[2022-07-01] MEDS: *INSULIN REGULAR(HUMULIN R)HUM 100 UNIT/ML VIAL SQ PRN (22:27)
[2022-07-02] VITALS: BP_SYST 94; BP_SYST 99; BP_DIAS 54; BP_DIAS 59
[2022-07-02] MEDS: CEPHALEXIN MONOHYDRATE 500 MG CAPSULE PO SCH ×5 (00:26→23:11)
[2022-07-02 04:00] VITALS: BP 92/52
[2022-07-02 06:05] LABS: BASOPHILS % (AUTO) 0.4 % (0.0-2.0); EOSINOPHILS % (AUTO) 1.4 % (0.0-6.0); HEMATOCRIT 37 % (39-51); HEMOGLOBIN 12.1 g/dL (13.5-17.5); LYMPHOCYTES # (AUTO) 1.3 K/uL (0.8-4.8); LYMPHOCYTES % (AUTO) 23.3 % (20.0-44.0); MEAN CORPUSCULAR HGB CONC 33 g/dl (31.0-36.0); MEAN CORPUSCULAR VOLUME 86 fL (80-96); MONOCYTES # (AUTO) 0.7 K/uL (0.1-1.30); MONOCYTES % (AUTO) 11.3 % (2.0-12.0); NEUTROPHILS # (AUTO) 3.7 K/uL (1.8-8.9); NEUTROPHILS % (AUTO) 63.6 % (43.0-81.0); PLATELET COUNT (AUTO) 277 K/uL (150-450); WHITE BLOOD COUNT (AUTO) 5.8 K/uL (4.3-11.0)
[2022-07-02 06:12] LABS: CALCIUM, SERUM 8.5 mg/dL (8.5-10.1); CARBON DIOXIDE 26 mmol/L (21-32); CHLORIDE 103 mmol/L (98-107); CREATININE 1.1 mg/dL (0.6-1.3); GLUCOSE 133 mg/dL (74-106); MAGNESIUM 1.9 mg/dL (1.8-2.4); PHOSPHORUS 5.3 mg/dL (2.5-4.9); SODIUM SERUM 136 mmol/L (136-145); UREA NITROGEN, BLOOD 20 mg/dL (7-18)
--- NOTE | 2022-07-02 06:43 | NUR ---
RN NOTES: BLOOD SUGAR -172 NO INSULIN GIVEN PATIENT IS NPO ON CT ANGIO OF HEART WITH 3D IMAGE.
--- NOTE | 2022-07-02 06:59 | NUR ---
SOIL ENGINEER CLOSING NOTES: PATIENT AWAKE IN BED, NO COMPLAIN OF PAIN AND DISCOMFORT AT THIS TIME, ON ROOM AIR SATURATING WELL, PATIENT IS A/OX4 ABLE TO MAKE NEEDS KNOWN, ON NPO FOR CT ANGIO OF HEART WITH 3D IMAGE,ON TELE MONITOR- SR-76, ON PAIN MANAGEMENT, PATIENT KEPT CLEAN AND DRY ALL NEEDS MET ENDORSE TO INCOMING SHIFT.
[2022-07-02] MEDS: BLOOD SUGAR DIAGNOSTIC 1 EACH STRIP VI SCH ×4 (07:30→22:31)
--- NOTE | 2022-07-02 07:40 | NUR ---
RN OPENING NOTE PATIENT AWAKE IN BED RESTING, A/O X4. NO S/S OF PAIN NOTED AT THIS TIME. ON ROOM AIR, BREATHING EVEN UNLABORED, NO DISTRESS OR SHORTNESS OF BREATH NOTED. IV ACCESS L WRIST #20G, INTACT, PATENT AND FLUSHING WELL. PATIENT WITH EXTERNAL BUSINESS INFO CONSULTANT WITH CURRENT READING OF SR AND HR OF 68, NO CARDIAC DISTRESS NOTED. FALL AND SAFETY MEASURES IN PLACE, BED ALARM ON, BED IN LOW AND LOCK POSITION, CALL LIGHT AND TABLE WITHIN EASY REACH, SIDE RAILS UP X2. WILL CONTINUE TO MONITOR.
[2022-07-02 08:00] VITALS: BP 90/53
[2022-07-02] MEDS: METOPROLOL TARTRATE 25 MG TABLET PO SCH ×2 (08:51→20:39)
[2022-07-02] MEDS: FUROSEMIDE 20 MG TABLET PO SCH (08:51)
[2022-07-02] MEDS: BENAZEPRIL HCL 20 MG TABLET PO SCH (08:52)
[2022-07-02] MEDS: GABAPENTIN 100 MG CAPSULE PO SCH ×3 (08:53→17:17)
[2022-07-02 11:12] VITALS: BP 115/62
[2022-07-02] MEDS ORDERED: IOHEXOL-350 100 ML VIAL IV ONE (14:44)
[2022-07-02] MEDS: METOPROLOL TARTRATE INJ 5 MG/5 ML AMPUL IVP PRN ×3 (14:45→14:55)
[2022-07-02] MEDS ORDERED: IV NS 0.9% 250 ML IV ONE (14:45)
[2022-07-02] MEDS ORDERED: CT SWABBABLE VALVE TRANS SET 1 EA INFUS.SET MC ONE (14:45)
[2022-07-02] MEDS ORDERED: METOPROLOL TARTRATE INJ 5 MG/5 ML AMPUL ONE (14:52)
[2022-07-02] MEDS ORDERED: NITROGLYCERIN 0.4 MG/TAB BOTTLE SL ONE (15:00)
--- NOTE | 2022-07-02 15:10 | NUR ---
RN NOTES CTCA WELL TOLERATED BY THE PT. PT IS AAOX4, NOT IN RESPIRATORY DISTRESS, V/S STABLE, KEPT RESTED AND COMFORTABLE. REPORT GIVEN TO RUIZ JARVIS FOR CARMEN.
[2022-07-02 15:53] VITALS: BP 96/60
[2022-07-02] MEDS: INSULIN REGULAR, HUMAN 100 UNIT/ML 3 ML VIAL SQ PRN (17:19)
--- NOTE | 2022-07-02 18:47 | NUR ---
RN CLOSING NOTE PATIENT AWAKE IN BED RESTING, A/O X4. NO S/S OF PAIN NOTED AT THIS TIME. ON ROOM AIR, BREATHING EVEN UNLABORED, NO DISTRESS OR SHORTNESS OF BREATH NOTED. IV ACCESS LFA #18G, INTACT, PATENT AND FLUSHING WELL. PATIENT WITH EXTERNAL SILK CREPE MACHINE OPERATOR WITH CURRENT READING OF SR WITH PVC AND HR OF 76, NO CARDIAC DISTRESS NOTED. FALL AND SAFETY MEASURES IN PLACE, BED ALARM ON, BED IN LOW AND LOCK POSITION, CALL LIGHT AND TABLE WITHIN EASY REACH, SIDE RAILS UP X2. ALL NEEDS ATTENDED AND ANTICIPATED. WILL ENDORSE TO MAINTENANCE SCHEDULER NURSE.
--- NOTE | 2022-07-02 19:36 | NUR ---
SMOKING PIPE LINER OPENING NOTES RECEIVED PATIENT IN BED AWAKE. PATIENT IS A/O TIMES 4. TURKISH SPEAKER. A LITTLE HARD OF HEARING. ABLE TO MAKE NEEDS KNOWN. NO PAIN NOTED. NO SOB NOTED. NO DISTRESS NOTED. ON TELE MONITOR READING SR. IV ACCESS ON THE LFA G # 18 INTACT . SL. ALL NEEDS ATTENDED. PATIENT REQUESTED TEA. PROVIDED THE PATIENT WITH TEA. ALL SAFETY MEASURES IN PLACE. BED LOCKED IN THE LOWEST POSITION. CALL LIGHT AND TABLE IN EASY REACH. SIDE RAILS UP TIMES 2. WILL CONTINUE TO MONITOR CLOSELY.
[2022-07-02 20:00] VITALS: BP 98/49
[2022-07-02] MEDS: ENOXAPARIN SODIUM 40 MG/0.4 ML DISP.SYRIN SQ SCH (20:36)
[2022-07-02] MEDS: ATORVASTATIN 40 MG TABLET PO SCH (21:29)
[2022-07-02] MEDS: TAMSULOSIN 0.4 MG CAP.SR.24H PO SCH (21:29)
[2022-07-02] MEDS: *INSULIN REGULAR(HUMULIN R)HUM 100 UNIT/ML VIAL SQ PRN (21:35)
--- NOTE | 2022-07-02 22:00 | NUR ---
RN NOTES. BLOOD SUGAR CHECK NOTED 168. 3 UNIT INSULIN GIVEN ORDERED.
[2022-07-03] VITALS: BP 102/44
[2022-07-03 04:00] VITALS: BP 104/62
[2022-07-03] MEDS: BLOOD SUGAR DIAGNOSTIC 1 EACH STRIP VI SCH ×2 (06:12→11:53)
[2022-07-03] MEDS: INSULIN REGULAR, HUMAN 100 UNIT/ML 3 ML VIAL SQ PRN ×2 (06:13→12:01)
[2022-07-03] MEDS: CEPHALEXIN MONOHYDRATE 500 MG CAPSULE PO SCH ×2 (06:15→11:59)
[2022-07-03 07:00] VITALS: BP 113/50
--- NOTE | 2022-07-03 07:43 | NUR ---
ENGINEERING OPERATIONS LEADER CLOSING NOTES PATIENT IN BED AWAKE. PATIENT IS A/O TIMES 4. TURKMEN SPEAKER. A LITTLE HARD OF HEARING. ABLE TO MAKE NEEDS KNOWN. NO PAIN NOTED. NO SOB NOTED. NO DISTRESS NOTED. ON TELE MONITOR READING SR. IV ACCESS ON THE LFA G # 18 INTACT . SL. ALL DUE MEDS GIVEN ORDERED.ALL SAFETY MEASURES IN PLACE. BED LOCKED IN THE LOWEST POSITION. CALL LIGHT AND TABLE IN EASY REACH. SIDE RAILS UP TIMES 2. WILL ENDORSE FOR CARMEN.
--- NOTE | 2022-07-03 08:09 | NUR ---
WOUND CARE CONSULT: PT SEEN FOR VERY SLIGHT REDNESS TO RT FOOT, PRESENT ON ADMISSION. DEFER TO PMD.
--- NOTE | 2022-07-03 08:17 | NUR ---
RN OPENING NOTE PATIENT AWAKE IN BED RESTING, A/O X4. NO S/S OF PAIN NOTED AT THIS TIME. ON ROOM AIR, BREATHING EVEN UNLABORED, NO DISTRESS OR SHORTNESS OF BREATH NOTED. IV ACCESS LFA #18G, INTACT, PATENT AND FLUSHING WELL. PATIENT REFUSED THE EXTERNAL POWER LINE INSTALLER AT THE MOMENT, MULTIPLE ATTEMPTS (X3) WERE MADE, NO CARDIAC DISTRESS NOTED. FALL AND SAFETY MEASURES IN PLACE, BED ALARM ON, BED IN LOW AND LOCK POSITION, CALL LIGHT AND TABLE WITHIN EASY REACH, SIDE RAILS UP X2. WILL CONTINUE TO MONITOR.
[2022-07-03] MEDS: METOPROLOL TARTRATE 25 MG TABLET PO SCH ×2 (09:00→09:03)
[2022-07-03] MEDS: FUROSEMIDE 20 MG TABLET PO SCH ×2 (09:00→09:04)
[2022-07-03] MEDS: BENAZEPRIL HCL 20 MG TABLET PO SCH ×2 (09:00→09:04)
[2022-07-03] MEDS: GABAPENTIN 100 MG CAPSULE PO SCH ×2 (09:04→12:02)
--- NOTE | 2022-07-03 09:10 | NUR ---
RN NOTE PATIENT REFUSED HIS MORNING FUROSEMIDE, METOPROLOL, AND BENAZEPRIL. THE MEDICATION BENAZEPRIL WAS DISCARD IN THE APPROPRIATE CONTAINER. WILL CONTINUE TO MONITOR PATIENT.
--- NOTE | 2022-07-03 12:30 | NUR ---
SS Consult: SS consult requested for homelessness. The pt. is a 72-year-old [place] male pt. who was admitted to [facility] for chest pain and head ache per EMR. Per pt., he has history of hypertension, hyperlipidemia, diabetes. Upon SS consult, the pt. is Alert & Oriented x 2 and makes good eye contact. The pt. appears well-groomed . Pt. has euthymic mood & affect. Pt. has clear speech and normal thought process. Pt. is very hard of hearing and a poor historian. Pt. states he has trouble remembering things. Pt. was calm & cooperative throughout interview. The pt. denies current SI/HI and denies current hallucinations. SW explored pt.s mental health Hx. Pt. denies any Hx. of mental health. SW explored pt.s living situation, Pt. states he does not remember where he lives. SW explored pt.s drug & ETOH use. Pt. denies drug and alcohol use. SW completed brief drug dependence intervention. Per pt. 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 Pt. states he does not receive any financial assistance. Pt. states that he is not in communication with his family. Plan: Pt. states he lives in [place] alone and could not recall address. Address on file is [facility] [address]. Pt. requested SNF placement and per , the pt. has been accepted to [facility]. Pt. refused homeless resources and did not sign homeless waiver as he states he is not experiencing homelessness. Winter Custodial list : [facility]; AB Adult WSP site; RAVEN Adult WSP site; and WFD Adult WSP site; instruction to call 211 for availability. Year-round shelters: [facility] [address] [place] [address] ; [facility] [address] [place] [address]; [facility] [address] [place] [facility] [address] Hygiene: [facility] [address] [place] ; [facility] [address] [facility] ; [facility] [address] . Food Resources: [place] [facility] at [facility]- [address]. [place]; Meet Each Need with Dignity ([facility]) [address] [facility] [facility]; [facility] [address] [place] [facility]; [facility] [address] [facility]. Mental Health resources provided: [facility] [address] [place], [place] [address] ; [facility] [address] [facility] [address], [place], [place] [id number] ; [facility] [address] [place], [place] [id number] ; [facility] [address] [place], [place] [address] Healthcare Clinics: [facility] [address] [facility], [address] [place]. [place] ; [facility] [address] [facility] [address] [place] [address]; [facility] [address] [place] [address] [phone]) [phone] Counseling--Outpatient [facility] [address], [address] [place], [place] [address] (Specializes in in-depth psychotherapy for emotional distress: anxiety, depression, interpersonal conflicts, life transitions, childhood abuse) [facility] [address] [place], [place] [phone] (Assist with solving problem marital difficulties, separation & divorce, aging parents, & grief, chronic & terminal illness) [facility] [address] [place] [address] (Deal with loss & grief, anxiety, marital difficulties) Homebound/Mental Health Services [address] [facility], [address] [place], [place] [address] (Provide in-home mental services to people who are incapable of leaving their homes) [facility] for Needs of the Elderly Senior Service/[facility] Center [address] [place] [address] [facility] [address] [place] [address] PSYCHIATRIC OUTPATIENT SERVICES [facility] Partial Hospitalization and Intensive Outpatient Program (Managed Care and [place] Only)[address] [facility] [phone] [facility] Partial Hospitalization and Outpatient [address] [place], [place] [phone] [facility], [facility] [id number] [place], [place] [phone] [facility] Partial Hospitalization and Outpatient Hcwskzb[address]691 eliSt. Agnes HospitalderianNEWTON UPPER [place], [phone] Substance Abuse resources provided included: [facility] Substance Abuse Self-Helpline (SAS) ; [facility] [address] [facility], [facility]. [place] [address] ; [facility] [address] [facility] [address] ; [facility] [address] [facility] [address] ; [facility] [address] [facility] [phone] ; [facility] Treatment [facility] [address] [facility] [phone] ; [facility] 9[address] [facility] [phone] ; [facility] Substance Abuse Helpline(SAS)-[facility] ; [facility] ; [facility] [place]; [facility] [place]; [facility] [place]; [facility] [address]; [facility] [place]; [facility] [place]; [facility]; [facility], [facility]. [facility] [place]; Alcoholics Anonymous -SFV; Xk-Auit-Rdeapyf ; Marijuana Anonymous -SFV; Narcotics Anonymous www.na.org;
--- NOTE | 2022-07-03 13:00 | NUR ---
HOT HEAD MACHINE OPERATOR NOTE PATIENT DISCHARGE IN STABLE MEDICAL CONDITION. V/S TAKEN, STABLE AND RECORDED. NO IV ACCESS. NAME ARM BAND REMOVED. EXTERNAL TIMBER HARVESTER OPERATOR REMOVED AND RETURNED TO TELE DESK. SKIN ASSESSMENT DONE, PICTURE TAKEN. ALL BELONGINGS CHECKED AND BELONGING LIST SIGNED. HEALTH TEACHING AND DISCHARGE INSTRUCTIONS GIVEN TO PATIENT AND NURSE AT FACILITY AND VERBALIZED UNDERSTANDING. INSTRUCT PATIENT TO MAKE AN APPOINTMENT WITH HIS PRIMARY DOCTOR. DISCUSSED PRESCRIPTIONS WITH PATIENT AND NURSE AT FACILITY. INSTRUCT PATIENT IN CASE OF EMERGENCY TO CALL 911 OR GO TO THE NEAREST ER. REPORT WAS GIVEN TO RUIZ VANCE AT [facility]. PATIENT LEFT UNIT VIA GURNEY WITH NO SIGNS OF DISTRESS, ACCOMPANIED BY CONTINUOUS MINING MACHINE LODE MINER. CHARGE NURSE AWARE DISCHARGE.
== END 2022-07-03 12:35 | DRG 311 ==
LOC: ER 21:18 → TELE 07-01 01:14
PROVIDERS: ADMIT Internal Medicine; ATTEND Internal Medicine
DX: I20.0 Unstable angina (principal); N17.0 Acute kidney failure with tubular necrosis; E87.1 Hypo-osmolality and hyponatremia; Z20.822 Contact with and (suspected) exposure to COVID-19; E11.9 Type 2 diabetes mellitus without complications; E78.5 Hyperlipidemia, unspecified; I10 Essential (primary) hypertension; Z79.84 Long term (current) use of oral hypoglycemic drugs; Z79.899 Other long term (current) drug therapy; N40.0 Benign prostatic hyperplasia without lower urinary tract symptoms
CPT/HCPCS: 36415; 71045-TC; 75574; 76770-TC; 80048-TC; 82962-TC; 83735-TC; 84100-TC; 84484-TC; 85025-TC; 87081-TC; 93307-TC; C9803; G0378; J1650; J1815; J2270; J3490; J7050; Q9967

== ENCOUNTER 2022-07-13 09:12 | Inpatient (IN) | payer MEDICARE, OTHER ==
[~2022-07-13] VITALS: Ht 167.6 cm; Wt 63.5 kg
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
[2022-07-13] MEDS ORDERED: MAGNESIUM HYDROXIDE 30 ML UDC PO PRN (10:30)
[2022-07-13] MEDS ORDERED: MAG HYDROX/AL HYDROX/SIMETH 30 ML UDC PO PRN (10:30)
[2022-07-13] MEDS ORDERED: ACETAMINOPHEN 325 MG TABLET PO PRN (10:30)
[2022-07-13] MEDS ORDERED: ZOLPIDEM TARTRATE 5 MG TABLET PO PRN (10:30)
[2022-07-13] MEDS ORDERED: BLOOD SUGAR DIAGNOSTIC 1 EACH STRIP IN ONE (10:30)
[2022-07-13] MEDS ORDERED: ASPI-1169 PO (11:14)
[2022-07-13] MEDS ORDERED: METF-440 PO (11:14)
[2022-07-13] MEDS ORDERED: ESCI5TAB PO (11:14)
[2022-07-13] MEDS ORDERED: DEXTROSE 50%-WATER 50 ML DISP.SYRIN IV PRN (13:30)
--- NOTE | 2022-07-13 14:45 | NUR ---
Pt is highly agitated, screaming and yelling, pounding the window and pushing the front door and wanted to go home. Notified Dr. Sanz and ordered Ativan 2 mg IM.
[2022-07-13] MEDS ORDERED: LORAZEPAM INJ 2 MG/ML VIAL IM ONE ×2 (15:00)
--- NOTE | 2022-07-13 15:00 | NUR ---
RN-NOTES PATIENT REFUSED LAB DRAW DESPITE EXPLANATION RISK AND BENEFITS. LOGISTICS RESEARCH ENGINEER GIACOMO WAS IN THE UNIT AND AWARE.
[2022-07-13 16:00] VITALS: BP 116/60
[2022-07-13] MEDS: BLOOD SUGAR DIAGNOSTIC 1 EACH STRIP IN SCH ×2 (17:30→21:12)
--- NOTE | 2022-07-13 18:57 | NUR ---
RN-NOTES ACCU CHECK WAS NOT DONE PRIOR TO DINNER DUE TO PATIENT IS TOO SEDATED. WILL ENDORSE TO INCOMING NURSE FOR THE CONTINUITY OF CARE
[2022-07-13] MEDS: INSULIN REGULAR, HUMAN 100 UNIT/ML 3 ML VIAL SQ PRN (21:11)
[2022-07-13] MEDS ORDERED: QUETIAPINE FUMARATE 25 MG TABLET PO SCH (22:00)
[2022-07-13] MEDS: LORAZEPAM 0.5 MG TABLET PO PRN (22:08)
--- NOTE | 2022-07-13 22:12 | NUR ---
RN NOTES; PATIENT NOTED ANXIOUS,GOING ROOM TO ROOM WANTS TO GO HOME.PRN ATIVAN 1MG WAS GIVEN.
[2022-07-14 07:25] LABS: CHOLESTEROL 111 mg/dL (<200); HDL CHOLESTEROL 63 mg/dL (40-60); LDL 49 mg/dL (0-99); TRIGLYCERIDES 40 mg/dL (30-150)
[2022-07-14 07:34] LABS: ALBUMIN 3.2 g/dL (3.4-5.0); BILIRUBIN,TOTAL 0.3 mg/dL (0.2-1.0); CALCIUM, SERUM 8.8 mg/dL (8.5-10.1); CREATININE 1.1 mg/dL (0.6-1.3); POTASSIUM 4.3 mmol/L (3.5-5.1); TOTAL PROTEIN, SERUM 6.6 g/dL (6.4-8.2)
[2022-07-14 08:00] VITALS: BP 111/62
[2022-07-14] MEDS: BLOOD SUGAR DIAGNOSTIC 1 EACH STRIP IN SCH ×4 (08:10→21:16)
[2022-07-14] MEDS ORDERED: Medication Not On Formulary EA (Escitalopram Oxalate (Lexapro) 5 MG) PO SCH (09:00)
[2022-07-14] MEDS: ATORVASTATIN 40 MG TABLET PO SCH (09:23)
[2022-07-14] MEDS: ESCITALOPRAM OXALATE (10 MG) 10 MG TABLET PO SCH (09:23)
[2022-07-14] MEDS: BENAZEPRIL HCL 20 MG TABLET PO SCH (09:24)
[2022-07-14] MEDS: ASPIRIN 81 MG TAB.CHEW PO SCH (09:24)
[2022-07-14] MEDS: TAMSULOSIN 0.4 MG CAP.SR.24H PO SCH (09:24)
[2022-07-14] MEDS: INSULIN REGULAR, HUMAN 100 UNIT/ML 3 ML VIAL SQ PRN ×4 (09:26→21:35)
[2022-07-14] MEDS: QUETIAPINE FUMARATE 25 MG TABLET PO SCH ×2 (10:07→20:00)
[2022-07-14] MEDS: METFORMIN 500 MG TABLET PO SCH ×2 (10:07→17:48)
[2022-07-14] MEDS ORDERED: LINAGLIPTIN 5 MG TABLET PO PRN (11:00)
[2022-07-14 14:33] LABS: CALCIUM, SERUM 8.6 mg/dL (8.5-10.1); CARBON DIOXIDE 29 mmol/L (21-32); CHLORIDE 100 mmol/L (98-107); CREATININE 1.5 mg/dL (0.6-1.3); GLUCOSE 179 mg/dL (74-106); POTASSIUM 4.3 mmol/L (3.5-5.1); SODIUM SERUM 134 mmol/L (136-145); UREA NITROGEN, BLOOD 26 mg/dL (7-18)
[2022-07-14 16:00] VITALS: BP 89/66
--- NOTE | 2022-07-14 18:53 | NUR ---
RN NOTES: PATIENT IS CALM AND COOPERATIVE WITHIN THE SHIFT, ABLE TO MAKE NEEDS KNOWN. PATIENT ALWAYS VERBALIZED THAT HE WANTED TO GO HOME. WAS SEEN BY DR. MCCARTHY TODAY WITH ORDERS MADE AND CARRIED OUT. WILL ENDORSE CARMEN TO HOSPICE CLINICAL MARKETER.
[2022-07-14 20:02] VITALS: BP 119/64
[2022-07-14] MEDS: INSULIN GLARGINE, 100 UNIT/ML CARTRIDGE SQ SCH (21:36)
[2022-07-14] MEDS: LORAZEPAM 0.5 MG TABLET PO PRN (21:45)
[2022-07-15] MEDS: BLOOD SUGAR DIAGNOSTIC 1 EACH STRIP IN SCH ×4 (07:30→21:24)
[2022-07-15 08:00] VITALS: BP 117/56
[2022-07-15] MEDS: BENAZEPRIL HCL 20 MG TABLET PO SCH (09:00)
[2022-07-15] MEDS: INSULIN REGULAR, HUMAN 100 UNIT/ML 3 ML VIAL SQ PRN ×3 (09:27→17:55)
[2022-07-15] MEDS: LINAGLIPTIN 5 MG TABLET PO PRN (09:27)
[2022-07-15] MEDS: METFORMIN 500 MG TABLET PO SCH ×2 (09:27→17:54)
[2022-07-15] MEDS: ASPIRIN 81 MG TAB.CHEW PO SCH (09:28)
[2022-07-15] MEDS: ESCITALOPRAM OXALATE (10 MG) 10 MG TABLET PO SCH (09:28)
[2022-07-15] MEDS: ATORVASTATIN 40 MG TABLET PO SCH (09:29)
[2022-07-15] MEDS: QUETIAPINE FUMARATE 25 MG TABLET PO SCH ×2 (09:29→20:00)
[2022-07-15] MEDS: TAMSULOSIN 0.4 MG CAP.SR.24H PO SCH (09:30)
[2022-07-15] MEDS: LORAZEPAM 0.5 MG TABLET PO PRN ×2 (11:19→17:54)
--- NOTE | 2022-07-15 11:20 | NUR ---
JAZMÍN Initial Discharge Note: Patient currently resides at [address] [place] [address]; ([phone]). Uncertain if pt resides here. JAZMÍN will books salesperson to notify Kristin ([phone]) to gather collateral and discuss treatment/discharge plan. JAZMÍN will work with the MD, family, and pt to help coordinate appropriate discharge.
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
--- NOTE | 2022-07-15 11:20 | NUR ---
NURSE NOTE: PT AGITATED AT THIS TIME. ANGRILY ASKING FOR HIS PHONE, ATTEMPTED TO REDIRECT, BUT UNABLE TO. ATIVAN PO ADMINISTERED AT THIS TIME. PT CHELSI WELL. WILL CONT TO MONITOR.
--- NOTE | 2022-07-15 11:21 | NUR ---
Treatment Plan: Pt refused to sign treatment plan and was agitated.
--- NOTE | 2022-07-15 13:27 | NUR ---
JAZMÍN Family Contact: JAZMÍN contacted person to notify Kristin ([phone]) and left a detailed voicemail.
--- NOTE | 2022-07-15 13:27 | NUR ---
JAZMÍN Note: JAZMÍN found records that pt was at [facility] ([phone]) and this song writer spoke with admissions who stated that this is not a patient at the facility.
[2022-07-15 14:59] LABS: CALCIUM, SERUM 8.8 mg/dL (8.5-10.1); CREATININE 1.1 mg/dL (0.6-1.3); POTASSIUM 4.5 mmol/L (3.5-5.1)
[2022-07-15 16:00] VITALS: BP 123/59
--- NOTE | 2022-07-15 17:55 | NUR ---
Patient agitated and not following directions medicated with Ativan 1mg will continue to monitor .
--- NOTE | 2022-07-15 18:59 | NUR ---
patient refused MRSA nares ,will continue to encourage .
[2022-07-15 19:35] VITALS: BP 125/67
[2022-07-15] MEDS: INSULIN GLARGINE, 100 UNIT/ML CARTRIDGE SQ SCH (21:25)
[2022-07-16 08:00] VITALS: BP 105/57
[2022-07-16] MEDS: BLOOD SUGAR DIAGNOSTIC 1 EACH STRIP IN SCH ×4 (08:03→21:19)
[2022-07-16] MEDS: ATORVASTATIN 40 MG TABLET PO SCH (08:46)
[2022-07-16] MEDS: METFORMIN 500 MG TABLET PO SCH ×2 (08:46→16:51)
[2022-07-16] MEDS: TAMSULOSIN 0.4 MG CAP.SR.24H PO SCH (08:47)
[2022-07-16] MEDS: BENAZEPRIL HCL 20 MG TABLET PO SCH (08:47)
[2022-07-16] MEDS: QUETIAPINE FUMARATE 25 MG TABLET PO SCH ×2 (08:47→20:46)
[2022-07-16] MEDS: ASPIRIN 81 MG TAB.CHEW PO SCH (08:47)
[2022-07-16] MEDS: ESCITALOPRAM OXALATE (10 MG) 10 MG TABLET PO SCH (08:47)
[2022-07-16] MEDS: INSULIN REGULAR, HUMAN 100 UNIT/ML 3 ML VIAL SQ PRN ×3 (11:54→21:21)
[2022-07-16] MEDS: LORAZEPAM 0.5 MG TABLET PO PRN (12:48)
--- NOTE | 2022-07-16 12:48 | NUR ---
RN- NOTES ATIVAN GIVEN DUE TO PATIENT INCREASED IRRITABILITY AND YELLING AT STAFF.
--- NOTE | 2022-07-16 14:30 | NUR ---
RN- NOTES PATIENT REFUSED BLOOD DRAW.
[2022-07-16] MEDS ORDERED: OLANZAPINE 10 MG VIAL IM STA (14:55)
--- NOTE | 2022-07-16 14:55 | NUR ---
RN- NOTES AROUND 1445, PATIENT STARTED TO BECOME INCREASINGLY AGITATED AT THE NURSING STATION. PATIENT STARTED TO YELL PROFANITIES AT STAFF. ATTEMPTED TO CALM AND REDIRECT BUT PATIENT PROGRESSED TO THREATENING BEHAVIOR. DR. MCCARTHY CALLED AND NOTIFIED OF PATIENT BEHAVIOR, AND ORDERED ZYPREXA 5MG IM ONCE. MEDICATION WAS PULLED AND INJECTION WAS ADMINISTERED AT 1455. CLOSE MONITORING OF THE PATIENT STARTED. WILL CONTINUE WITH FACE TO FACE MONITORING AT THIS TIME.
[2022-07-16 16:00] VITALS: BP 99/53
[2022-07-16 19:58] VITALS: BP 103/51
[2022-07-16] MEDS: INSULIN GLARGINE, 100 UNIT/ML CARTRIDGE SQ SCH (21:22)
[2022-07-17] MEDS: BLOOD SUGAR DIAGNOSTIC 1 EACH STRIP IN SCH ×4 (07:57→22:33)
[2022-07-17 08:00] VITALS: BP 127/70
[2022-07-17] MEDS: ATORVASTATIN 40 MG TABLET PO SCH (08:44)
[2022-07-17] MEDS: ESCITALOPRAM OXALATE (10 MG) 10 MG TABLET PO SCH (08:44)
[2022-07-17] MEDS: METFORMIN 500 MG TABLET PO SCH ×2 (08:44→17:38)
[2022-07-17] MEDS: ASPIRIN 81 MG TAB.CHEW PO SCH (08:44)
[2022-07-17] MEDS: TAMSULOSIN 0.4 MG CAP.SR.24H PO SCH (08:44)
[2022-07-17] MEDS: QUETIAPINE FUMARATE 25 MG TABLET PO SCH ×2 (08:45→22:06)
[2022-07-17] MEDS: BENAZEPRIL HCL 20 MG TABLET PO SCH (08:45)
[2022-07-17] MEDS: LORAZEPAM 0.5 MG TABLET PO PRN (10:16)
--- NOTE | 2022-07-17 10:19 | NUR ---
RN-NOTES NOTED PATIENT PACING IN THE HALLWAY AND FOCUS ON GOING HOME.REDIRECTED AND ATIVAN 1MG P.O GIVEN PRN ORDER. WILL CONT. MONITORING FOR SAFETY AND BEHAVIOR.
--- NOTE | 2022-07-17 10:30 | NUR ---
Court Notification: Pt does not have any supportive contact at this time.
--- NOTE | 2022-07-17 10:46 | NUR ---
Court Hearing: Patient's court hearing for 1590 was today and it was upheld for GD.
[2022-07-17] MEDS: INSULIN REGULAR, HUMAN 100 UNIT/ML 3 ML VIAL SQ PRN (11:32)
[2022-07-17 15:20] LABS: POTASSIUM 4.2 mmol/L (3.5-5.1)
[2022-07-17 16:00] VITALS: BP 103/52
[2022-07-17 20:31] VITALS: BP 101/55
[2022-07-17] MEDS: INSULIN GLARGINE, 100 UNIT/ML CARTRIDGE SQ SCH (22:00)
--- NOTE | 2022-07-17 22:30 | NUR ---
GPS RN NOTE ACCUCHECK WAS DONE AND PATIENT'S FBS WAS 135. PATIENT WAS SUPPOSE TO GET 2 UNITS OF INSULIN AND LANTUS ORDERED, BUT PATIENT REFUSED TO HAVE BOTH DESPITE EXPLANATION. WILL CONTINUE TO MONITOR
[2022-07-18] MEDS: BLOOD SUGAR DIAGNOSTIC 1 EACH STRIP IN SCH ×4 (07:57→21:25)
[2022-07-18 08:00] VITALS: BP 118/61
[2022-07-18] MEDS: ATORVASTATIN 40 MG TABLET PO SCH (08:48)
[2022-07-18] MEDS: QUETIAPINE FUMARATE 25 MG TABLET PO SCH ×2 (08:48→20:39)
[2022-07-18] MEDS: TAMSULOSIN 0.4 MG CAP.SR.24H PO SCH (08:49)
[2022-07-18] MEDS: METFORMIN 500 MG TABLET PO SCH ×2 (08:49→17:04)
[2022-07-18] MEDS: ASPIRIN 81 MG TAB.CHEW PO SCH (08:49)
[2022-07-18] MEDS: BENAZEPRIL HCL 20 MG TABLET PO SCH (08:49)
[2022-07-18] MEDS: ESCITALOPRAM OXALATE (10 MG) 10 MG TABLET PO SCH (08:49)
[2022-07-18] MEDS: INSULIN REGULAR, HUMAN 100 UNIT/ML 3 ML VIAL SQ PRN ×2 (11:36→21:30)
[2022-07-18 15:06] LABS: CALCIUM, SERUM 9.3 mg/dL (8.5-10.1); POTASSIUM 4.7 mmol/L (3.5-5.1)
[2022-07-18 16:00] VITALS: BP 102/64
--- NOTE | 2022-07-18 19:23 | NUR ---
GPS BUSINESS SPECIALIST NOTE: RCVD IN HALLWAY, PACING AROUND , NEEDS RE-DIRECTION, RE-ORIENTATION, BREATHING EVEN AND UNLABORED, NO S/SX OF RES. DISTRESS OR DISCOMFORT AT THIS TIME. WILL CONT TO MONITOR AND ANTICIPATE NEEDS.
[2022-07-18 20:39] VITALS: BP 115/63
[2022-07-18] MEDS: LORAZEPAM 0.5 MG TABLET PO PRN (20:40)
--- NOTE | 2022-07-18 20:43 | NUR ---
GPS QUICK SKETCH ARTIST NOTE PT WITH EPISODE OF AGITATION AND ANXIETY , YELLING IN HALLWAY, AND CURSING STAFF, PRN ATIVAN FOR ANXIETY AND AGITATION GIVEN, MEDICATION COMPLIANT. BP NOTED 115/63 HR 93.
[2022-07-18] MEDS: INSULIN GLARGINE, 100 UNIT/ML CARTRIDGE SQ SCH (21:29)
--- NOTE | 2022-07-18 22:35 | NUR ---
GPS BLENDER HELPER NOTE PT REMAINS AWAKE, PACING FROM BEDROOM - HALLWAY, CALM @ THIS TIME. CONTINUE TO MONITOR Q 15 MINS FOR PT'S BEHAVIOR AND SAFETY.
--- NOTE | 2022-07-18 22:36 | NUR ---
GPS SYSTEM SUPPORT SPECIALIST NOTE 2200 BS 173, INSULIN LANTUS ORDERED GIVEN, BUT PT REFUSED THE REGULAR INSULIN COVERAGE.
--- NOTE | 2022-07-19 00:22 | NUR ---
GPS DISPLAY DESIGNER NOTE PT NOTED IN BED, SLEEPING EASY TO AROUSE, BREATHING EVEN AND UNLABORED. SAFETY MEASURES NOTED, WILL CONTINUE TO MONITOR Q 15 MINS PT'S BEHAVIOR AND SAFETY.
--- NOTE | 2022-07-19 03:15 | NUR ---
GPS GROUNDMAN NOTE PT SLEEPING, EASY TO AROUSE, NO S/SX OF RESP.DISTRESS. CONT TO MONITOR Q15 MINS - BEHAVIOR AND SAFETY.
--- NOTE | 2022-07-19 06:01 | NUR ---
GPS SENIOR CYBER SECURITY ANALYST NOTE PT STILL SLEEPING AT THIS TIME, EASY TO AROUSE. NO S/SX OF RESP.DISTRESS, PT ABLE TO MAKE HIS NEEDS KNOW, ABLE TO VERBALIZED NEEDS. TOLERATED HIS MEDS DURING SHIFT. SAFETY MEASURES OBSERVED. WILL ENDORSE CONTINUITY OF CARE TO AM ONCOMING NURSE.
[2022-07-19] MEDS: BLOOD SUGAR DIAGNOSTIC 1 EACH STRIP IN SCH ×5 (07:47→21:32)
[2022-07-19] MEDS: BENAZEPRIL HCL 20 MG TABLET PO SCH (07:51)
[2022-07-19 08:00] VITALS: BP 97/50
[2022-07-19] MEDS: TAMSULOSIN 0.4 MG CAP.SR.24H PO SCH (08:04)
[2022-07-19] MEDS: ASPIRIN 81 MG TAB.CHEW PO SCH (08:04)
[2022-07-19] MEDS: ESCITALOPRAM OXALATE (10 MG) 10 MG TABLET PO SCH (08:04)
[2022-07-19] MEDS: METFORMIN 500 MG TABLET PO SCH ×2 (08:04→17:20)
[2022-07-19] MEDS: LINAGLIPTIN 5 MG TABLET PO PRN (08:04)
[2022-07-19] MEDS: QUETIAPINE FUMARATE 25 MG TABLET PO SCH ×2 (08:04→20:45)
[2022-07-19] MEDS: ATORVASTATIN 40 MG TABLET PO SCH (08:04)
[2022-07-19] MEDS: GLUCERNA SHAKE 237 ML CAN PO SCH (08:05)
--- NOTE | 2022-07-19 12:23 | NUR ---
GPS/RN ACCUCHECK WITH SJ=096 PT REFUSED INSULIN COVERAGE OFFERED X3
[2022-07-19 16:00] VITALS: BP 120/71
--- NOTE | 2022-07-19 17:30 | NUR ---
GPS/RN ACCUCHECK WITH SX=449 PT no INSULIN COVERAGE
--- NOTE | 2022-07-19 19:24 | NUR ---
RN NOTES: PATIENT RESTING HIS ROOM, BREATHING EVEN AND UNLABORED WITH NO S/S OF DISTRESS. PATIENT IS ANXIOUS, GUARDED, PARNOID, HYPERVERBAL , NEEDY PATIENT IS MEDICATION COMPLIANT. ENCOURAGED PATIENT TO VERBALIZED ANY FEELING OR CONCERN . DENIES SI/HI AND AUDITORY/VISUAL HALLUCINATIONS AT THIS TIME. WILL CONTINUE TO MONITOR Q 15 MINUTES FOR SAFETY AND BEHAVIOR.
[2022-07-19] MEDS: INSULIN GLARGINE, 100 UNIT/ML CARTRIDGE SQ SCH (21:26)
--- NOTE | 2022-07-19 21:26 | NUR ---
RN NOTES: PATIENT REFUSED INSULLIN LANTUS OF 6 UNITS, ENCOURAGED 3X BUT STILL STRONGLY REFUSED, PER PT. STATED MY BLOOD SUGAR DROPPED , I DONT NEED IT, EXPLINED RISKS AND BENEFITS, WILL CONTINUITY WITH CARE.
--- NOTE | 2022-07-20 05:43 | NUR ---
RN NOTES: PATIENT RESTING IN ROOM AND 8 HOURS OF SLEEP NO S/SX OF ACUTE DISTRESS NOTED. PATIENT EASILY AGITATED,PARANOID,DISORGNIZED, MED COMPLIANT , COOPERATIVE TO CARE.ALL NEEDS ATTENDED AND ANTICIPATED, NEEDS FREQUENTLY REDIRECTIONS, DENIES SI/HI/AVH AT THIS TIME. SAFETY PRECAUTIONS MAINTAINED. ENCOURAGED TO VERBALIZED ANY FEELING OR CONCERN ,WILL CONTINUE TO MONITOR Q15MIN ROUNDS FOR SAFETY AND BEHAVIOR.
[2022-07-20 08:00] VITALS: BP 106/60
[2022-07-20] MEDS: BENAZEPRIL HCL 20 MG TABLET PO SCH (09:00)
[2022-07-20] MEDS: BLOOD SUGAR DIAGNOSTIC 1 EACH STRIP IN SCH ×4 (09:20→21:37)
[2022-07-20] MEDS: GLUCERNA SHAKE 237 ML CAN PO SCH (09:20)
[2022-07-20] MEDS: ASPIRIN 81 MG TAB.CHEW PO SCH (09:23)
[2022-07-20] MEDS: METFORMIN 500 MG TABLET PO SCH ×2 (09:23→17:17)
[2022-07-20] MEDS: LINAGLIPTIN 5 MG TABLET PO PRN (09:23)
[2022-07-20] MEDS: QUETIAPINE FUMARATE 25 MG TABLET PO SCH ×2 (09:24→20:41)
[2022-07-20] MEDS: ATORVASTATIN 40 MG TABLET PO SCH (09:24)
[2022-07-20] MEDS: ESCITALOPRAM OXALATE (10 MG) 10 MG TABLET PO SCH (09:24)
[2022-07-20] MEDS: TAMSULOSIN 0.4 MG CAP.SR.24H PO SCH (09:24)
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
[2022-07-20] MEDS ORDERED: OLANZAPINE 10 MG VIAL IM ONE (11:00)
--- NOTE | 2022-07-20 12:53 | NUR ---
GPS/RN PT REFUSED ACCUCHECK OFFERED X3
[2022-07-20 16:00] VITALS: BP 106/57
--- NOTE | 2022-07-20 19:41 | NUR ---
RN NOTES: PATIENT RESTING HIS ROOM, BREATHING EVEN AND UNLABORED WITH NO S/S OF DISTRESS. PATIENT IS ANXIOUS, GUARDED, PARNOID, EASILY AGITATED, PARANOID , NEEDY PATIENT IS MEDICATION COMPLIANT. ENCOURAGED PATIENT TO VERBALIZED ANY FEELING OR CONCERN . DENIES SI/HI AND AUDITORY/VISUAL HALLUCINATIONS AT THIS TIME. WILL CONTINUE TO MONITOR Q 15 MINUTES FOR SAFETY AND BEHAVIOR.
[2022-07-20 20:12] VITALS: BP_SYST 110; BP_DIAS 59; BP_DIAS 62
[2022-07-20] MEDS: INSULIN GLARGINE, 100 UNIT/ML CARTRIDGE SQ SCH (21:50)
[2022-07-21 08:00] VITALS: BP 144/79
[2022-07-21] MEDS: BLOOD SUGAR DIAGNOSTIC 1 EACH STRIP IN SCH ×4 (08:43→21:24)
[2022-07-21] MEDS: GLUCERNA SHAKE 237 ML CAN PO SCH (09:03)
[2022-07-21] MEDS: ESCITALOPRAM OXALATE (10 MG) 10 MG TABLET PO SCH (09:06)
[2022-07-21] MEDS: LINAGLIPTIN 5 MG TABLET PO PRN (09:06)
[2022-07-21] MEDS: METFORMIN 500 MG TABLET PO SCH ×2 (09:06→16:51)
[2022-07-21] MEDS: QUETIAPINE FUMARATE 25 MG TABLET PO SCH ×2 (09:06→21:04)
[2022-07-21] MEDS: ASPIRIN 81 MG TAB.CHEW PO SCH (09:06)
[2022-07-21] MEDS: ATORVASTATIN 40 MG TABLET PO SCH (09:06)
[2022-07-21] MEDS: TAMSULOSIN 0.4 MG CAP.SR.24H PO SCH (09:07)
[2022-07-21] MEDS: BENAZEPRIL HCL 20 MG TABLET PO SCH (09:07)
[2022-07-21] MEDS: INSULIN REGULAR, HUMAN 100 UNIT/ML 3 ML VIAL SQ PRN ×2 (13:34→21:24)
[2022-07-21 16:00] VITALS: BP 100/53
[2022-07-21 20:21] VITALS: BP 100/53
[2022-07-21] MEDS: INSULIN GLARGINE, 100 UNIT/ML CARTRIDGE SQ SCH (21:23)
--- NOTE | 2022-07-22 06:23 | NUR ---
wound/ostomy clinical nurse specialist notes pt resting comfortably in bed without any acute distress noted. slept well and stable throughout the night. kept him warm and comfortable at all times. will continue monitoring
[2022-07-22 08:00] VITALS: BP 115/64
[2022-07-22] MEDS: BLOOD SUGAR DIAGNOSTIC 1 EACH STRIP IN SCH ×4 (08:14→21:33)
[2022-07-22] MEDS: METFORMIN 500 MG TABLET PO SCH ×2 (08:23→17:21)
[2022-07-22] MEDS: BENAZEPRIL HCL 20 MG TABLET PO SCH (08:23)
[2022-07-22] MEDS: ASPIRIN 81 MG TAB.CHEW PO SCH (08:24)
[2022-07-22] MEDS: TAMSULOSIN 0.4 MG CAP.SR.24H PO SCH (08:24)
[2022-07-22] MEDS: ESCITALOPRAM OXALATE (10 MG) 10 MG TABLET PO SCH (08:24)
[2022-07-22] MEDS: QUETIAPINE FUMARATE 25 MG TABLET PO SCH ×2 (08:25→20:03)
[2022-07-22] MEDS: ATORVASTATIN 40 MG TABLET PO SCH (08:25)
[2022-07-22] MEDS: GLUCERNA SHAKE 237 ML CAN PO SCH (09:42)
--- NOTE | 2022-07-22 10:30 | NUR ---
NURSE NOTE: PT INFORMED DR MCCARTHY THAT HE WAS HAVING CHEST PAIN. DR MCFADDEN INFORMED AND GIVEN INFORMATION. DR ESPINOZA ORDERED EKG AND TROPONIN LEVEL. PT ALREADY HAD ASA THIS AM. VITALS CHECKED AT THIS TIME. BP 114/57, P 74, R 19, SATS 99%. BS 212. WILL INFORM DR ESPINOZA.
[2022-07-22] MEDS ORDERED: NITROGLYCERIN 0.4 MG/TAB BOTTLE SL PRN (11:00)
--- NOTE | 2022-07-22 11:30 | NUR ---
NURSE NOTE: DR ESPINOZA INFORMED OF PRIOR VITAL SIGNS. ORDERED NITROGLYCERIN PRN. RECHECKED VITALS. BP 102/56, P 82, R 20, SATS 99%. HELD NITROGLYCERIN AT THIS TIME. PT DENIES CHEST PAIN AT THIS TIME. WILL CONT TO MONITOR.
[2022-07-22 16:00] VITALS: BP 99/53
[2022-07-22 19:42] VITALS: BP 106/52
[2022-07-22] MEDS: INSULIN REGULAR, HUMAN 100 UNIT/ML 3 ML VIAL SQ PRN (21:34)
[2022-07-22] MEDS: INSULIN GLARGINE, 100 UNIT/ML CARTRIDGE SQ SCH (21:35)
[2022-07-23 08:00] VITALS: BP 115/61
[2022-07-23] MEDS: BLOOD SUGAR DIAGNOSTIC 1 EACH STRIP IN SCH ×4 (08:00→21:31)
[2022-07-23] MEDS: TAMSULOSIN 0.4 MG CAP.SR.24H PO SCH (08:43)
[2022-07-23] MEDS: ESCITALOPRAM OXALATE (10 MG) 10 MG TABLET PO SCH (08:44)
[2022-07-23] MEDS: QUETIAPINE FUMARATE 25 MG TABLET PO SCH ×2 (08:44→21:17)
[2022-07-23] MEDS: BENAZEPRIL HCL 20 MG TABLET PO SCH (08:45)
[2022-07-23] MEDS: ATORVASTATIN 40 MG TABLET PO SCH (08:45)
[2022-07-23] MEDS: GLUCERNA SHAKE 237 ML CAN PO SCH (08:46)
[2022-07-23] MEDS: ASPIRIN 81 MG TAB.CHEW PO SCH (08:46)
[2022-07-23] MEDS: LINAGLIPTIN 5 MG TABLET PO PRN (08:46)
[2022-07-23] MEDS: METFORMIN 500 MG TABLET PO SCH ×2 (08:50→16:17)
[2022-07-23] MEDS: INSULIN REGULAR, HUMAN 100 UNIT/ML 3 ML VIAL SQ PRN (11:39)
[2022-07-23 16:00] VITALS: BP 100/57
--- NOTE | 2022-07-23 18:38 | NUR ---
SUMMER COUNSELOR NOTES PATIENT RESTING HIS ROOM, BREATHING EVEN AND UNLABORED WITH NO S/S OF DISTRESS. PATIENT IS ANXIOUS, GUARDED, PARANOID, MEDICATION COMPLIANT. ENCOURAGED PATIENT TO VERBALIZED ANY FEELING OR CONCERN . DENIES SI/HI AND AUDITORY/VISUAL HALLUCINATIONS AT THIS TIME. WILL ENDORSE TO NEXT SHIFT
[2022-07-23 20:01] VITALS: BP 101/52
[2022-07-23] MEDS: INSULIN GLARGINE, 100 UNIT/ML CARTRIDGE SQ SCH (21:31)
[2022-07-24 08:00] VITALS: BP 113/61
[2022-07-24] MEDS: BLOOD SUGAR DIAGNOSTIC 1 EACH STRIP IN SCH ×4 (08:18→22:14)
[2022-07-24] MEDS: QUETIAPINE FUMARATE 25 MG TABLET PO SCH ×2 (08:31→21:01)
[2022-07-24] MEDS: LINAGLIPTIN 5 MG TABLET PO PRN (08:31)
[2022-07-24] MEDS: BENAZEPRIL HCL 20 MG TABLET PO SCH (08:31)
[2022-07-24] MEDS: METFORMIN 500 MG TABLET PO SCH ×2 (08:31→16:25)
[2022-07-24] MEDS: ATORVASTATIN 40 MG TABLET PO SCH (08:31)
[2022-07-24] MEDS: ASPIRIN 81 MG TAB.CHEW PO SCH (08:32)
[2022-07-24] MEDS: TAMSULOSIN 0.4 MG CAP.SR.24H PO SCH (08:32)
[2022-07-24] MEDS: ESCITALOPRAM OXALATE (10 MG) 10 MG TABLET PO SCH (08:33)
[2022-07-24] MEDS: GLUCERNA SHAKE 237 ML CAN PO SCH (08:34)
--- NOTE | 2022-07-24 13:34 | NUR ---
SNF Referral: SW sent clinicals to [facility] for [facility] ([phone]) for placement. SW sent H & P, progress notes, and medication list.
--- NOTE | 2022-07-24 15:15 | NUR ---
SNF Contact: SW received a call from admissions ([phone]) who stated pt is accepted at [facility].
[2022-07-24 16:00] VITALS: BP 95/52
[2022-07-24 20:00] VITALS: BP 101/65
[2022-07-24 20:50] VITALS: BP 101/55
[2022-07-24] MEDS: INSULIN GLARGINE, 100 UNIT/ML CARTRIDGE SQ SCH (22:00)
--- NOTE | 2022-07-24 22:18 | NUR ---
BS 110 MG/DL, PATIENT REFUSED LANTUS 6 UNITS. EXPLAINED RISKS AND BENEFITS, STILL REFUSED.
--- NOTE | 2022-07-25 06:47 | NUR ---
PATIENT RESTING IN BED. A/O X2-3, [place]. DISHEVELED, PERIODS OF CONFUSION AND FORGETFULNESS, GUARDED, LABILE AND EASILY AGITATED. NO SOB OR NOTED. NO C/O PAIN. NO SI/HI AT THIS TIME. AMBULATORY AND INDEPENDENT WITH ADLS. SAFETY PRECAUTIONS IN PLACE. WILL ENDORSE TO NEXT SHIFT FOR CONTINUITY OF CARE.
[2022-07-25 08:00] VITALS: BP 117/67
[2022-07-25] MEDS: BLOOD SUGAR DIAGNOSTIC 1 EACH STRIP IN SCH ×4 (08:08→21:12)
[2022-07-25] MEDS: TAMSULOSIN 0.4 MG CAP.SR.24H PO SCH (09:37)
[2022-07-25] MEDS: GLUCERNA SHAKE 237 ML CAN PO SCH (09:37)
[2022-07-25] MEDS: METFORMIN 500 MG TABLET PO SCH ×2 (09:37→16:56)
[2022-07-25] MEDS: ASPIRIN 81 MG TAB.CHEW PO SCH (09:37)
[2022-07-25] MEDS: BENAZEPRIL HCL 20 MG TABLET PO SCH (09:38)
[2022-07-25] MEDS: ATORVASTATIN 40 MG TABLET PO SCH (09:38)
[2022-07-25] MEDS: ESCITALOPRAM OXALATE (10 MG) 10 MG TABLET PO SCH (09:38)
[2022-07-25] MEDS: QUETIAPINE FUMARATE 25 MG TABLET PO SCH ×2 (09:39→21:00)
[2022-07-25] MEDS: INSULIN REGULAR, HUMAN 100 UNIT/ML 3 ML VIAL SQ PRN ×3 (12:12→21:07)
[2022-07-25 16:00] VITALS: BP 99/60
[2022-07-25 20:00] VITALS: BP 114/58
[2022-07-25] MEDS: INSULIN GLARGINE, 100 UNIT/ML CARTRIDGE SQ SCH (21:08)
[2022-07-26 08:00] VITALS: BP 100/60
[2022-07-26] MEDS: QUETIAPINE FUMARATE 25 MG TABLET PO SCH ×2 (08:41→21:56)
[2022-07-26] MEDS: BLOOD SUGAR DIAGNOSTIC 1 EACH STRIP IN SCH ×4 (08:41→22:02)
[2022-07-26] MEDS: ATORVASTATIN 40 MG TABLET PO SCH (08:42)
[2022-07-26] MEDS: METFORMIN 500 MG TABLET PO SCH ×2 (08:42→17:52)
[2022-07-26] MEDS: ESCITALOPRAM OXALATE (10 MG) 10 MG TABLET PO SCH (08:42)
[2022-07-26] MEDS: LINAGLIPTIN 5 MG TABLET PO PRN (08:42)
[2022-07-26] MEDS: TAMSULOSIN 0.4 MG CAP.SR.24H PO SCH (08:42)
[2022-07-26] MEDS: ASPIRIN 81 MG TAB.CHEW PO SCH (08:42)
[2022-07-26] MEDS: BENAZEPRIL HCL 20 MG TABLET PO SCH (08:43)
[2022-07-26] MEDS: GLUCERNA SHAKE 237 ML CAN PO SCH (08:43)
[2022-07-26 12:33] LABS: CALCIUM, SERUM 9.1 mg/dL (8.5-10.1); POTASSIUM 5.2 mmol/L (3.5-5.1)
[2022-07-26 16:00] VITALS: BP 104/51
[2022-07-26 20:00] VITALS: BP 110/71
--- NOTE | 2022-07-26 20:24 | NUR ---
GPS RN OPENING NOTES RECEIVED PATIENT LYING IN BED, AWAKE AND ABLE TO MAKE NEEDS KNOW. A/O X 2. NO S/S OF PAIN OR ANY DISTRESS AT THIS TIME. BREATHING EVENLY AND NO COMPLAIN OF SOB AT THIS TIME. PATIENT IS GUARDED, QUIET FOCUSED ON DISCHARGE, ANXIOUS, FORGETFUL AND PATIENT IS THINKING SOMEONE STEALING HIS THINGS. PATIENT IS MEDICATION COMPLIANT. ENCOURAGE TO VERBALIZED FEELING AT ALL TIME. KEPT BED ON LOWER LOCKED POSITION, KEPT SIDE RAILS UP X 2 ALL TIME. KEPT CALL LIGHT WITHIN AT REACH. ALL NEEDS ATTENDED. WILL CONTINUE TO MONITOR ANY BEHAVIORAL CHANGES.
[2022-07-26] MEDS: INSULIN GLARGINE, 100 UNIT/ML CARTRIDGE SQ SCH (22:00)
--- NOTE | 2022-07-26 22:03 | NUR ---
GPS NOTES PATIENT HAD 79MG/DL OF BLOOD SUGAR NOW. APPLE JUICE ANS SNACK GIVEN TO THE PATIENT. WELL TOLERATED
[2022-07-27 08:00] VITALS: BP 103/67
[2022-07-27] MEDS: BLOOD SUGAR DIAGNOSTIC 1 EACH STRIP IN SCH ×4 (08:08→21:32)
[2022-07-27] MEDS: INSULIN REGULAR, HUMAN 100 UNIT/ML 3 ML VIAL SQ PRN ×3 (08:10→22:23)
[2022-07-27] MEDS: METFORMIN 500 MG TABLET PO SCH ×2 (08:14→17:06)
[2022-07-27] MEDS: LINAGLIPTIN 5 MG TABLET PO PRN (08:14)
[2022-07-27] MEDS: ESCITALOPRAM OXALATE (10 MG) 10 MG TABLET PO SCH (08:15)
[2022-07-27] MEDS: BENAZEPRIL HCL 20 MG TABLET PO SCH (08:15)
[2022-07-27] MEDS: ASPIRIN 81 MG TAB.CHEW PO SCH (08:15)
[2022-07-27] MEDS: QUETIAPINE FUMARATE 25 MG TABLET PO SCH ×2 (08:15→21:29)
[2022-07-27] MEDS: ATORVASTATIN 40 MG TABLET PO SCH (08:15)
[2022-07-27] MEDS: GLUCERNA SHAKE 237 ML CAN PO SCH (08:16)
[2022-07-27] MEDS: TAMSULOSIN 0.4 MG CAP.SR.24H PO SCH (08:16)
[2022-07-27 16:00] VITALS: BP 93/60
--- NOTE | 2022-07-27 19:00 | NUR ---
GPS RN OPENING NOTE RECEIVED PATIENT SITTING IN THE BED. PT IS A/O X2. ABLE TO MAKE NEEDS KNOWN. PATIENT IS SHOWING NO S/S OF DISTRESS AT THIS TIME. PT HAS NO S/S OR COMPLAINTS OF PAIN @ THIS TIME. PT IS IN RA TOLERATING WELL, BREATHING EVEN AND UNLABORED @ THIS TIME. PATIENT HAS NO NEED @ THIS TIME. PATIENT BED SIDE RAILS UP X 2 FOR SAFETY. BED LOCKED AND LOW. WILL CONTINUE TO MONITOR Q15 WITH THE HELP OF STAFF TO MAINTAIN SAFETY.
[2022-07-27 20:00] VITALS: BP 125/67
[2022-07-27] MEDS: INSULIN GLARGINE, 100 UNIT/ML CARTRIDGE SQ SCH (22:00)
--- NOTE | 2022-07-27 22:23 | NUR ---
HELD LANTUS AND REGULAR INSULIN D/T PT BLOOD SUGAR OF 74.
[2022-07-28 08:00] VITALS: BP 106/55
[2022-07-28] MEDS: ASPIRIN 81 MG TAB.CHEW PO SCH (08:02)
[2022-07-28] MEDS: LINAGLIPTIN 5 MG TABLET PO PRN (08:02)
[2022-07-28] MEDS: METFORMIN 500 MG TABLET PO SCH ×2 (08:02→16:17)
[2022-07-28] MEDS: TAMSULOSIN 0.4 MG CAP.SR.24H PO SCH (08:02)
[2022-07-28] MEDS: ESCITALOPRAM OXALATE (10 MG) 10 MG TABLET PO SCH (08:02)
[2022-07-28] MEDS: QUETIAPINE FUMARATE 25 MG TABLET PO SCH ×2 (08:02→21:13)
[2022-07-28] MEDS: ATORVASTATIN 40 MG TABLET PO SCH (08:03)
[2022-07-28] MEDS: BLOOD SUGAR DIAGNOSTIC 1 EACH STRIP IN SCH ×4 (08:03→21:20)
[2022-07-28] MEDS: GLUCERNA SHAKE 237 ML CAN PO SCH (08:03)
[2022-07-28] MEDS: BENAZEPRIL HCL 20 MG TABLET PO SCH (08:04)
--- NOTE | 2022-07-28 12:00 | NUR ---
GPS/TN PT REFUSED ACCUCHECK OFFERED X3
[2022-07-28 14:43] LABS: POTASSIUM 4.2 mmol/L (3.5-5.1)
[2022-07-28 16:00] VITALS: BP 99/57
[2022-07-28 20:22] VITALS: BP 102/50
[2022-07-28] MEDS: INSULIN GLARGINE, 100 UNIT/ML CARTRIDGE SQ SCH (22:26)
[2022-07-28] MEDS: INSULIN REGULAR, HUMAN 100 UNIT/ML 3 ML VIAL SQ PRN (22:28)
[2022-07-29 08:00] VITALS: BP 137/66
[2022-07-29] MEDS: BLOOD SUGAR DIAGNOSTIC 1 EACH STRIP IN SCH ×2 (08:18→11:50)
--- NOTE | 2022-07-29 08:34 | NUR ---
Discharge Note: Patient will be discharged to assisted facility to [facility] [address] [place] [address]; . Please arrange Ambulance transportation at 1PM. Instrumentation Technologist spoke with JOSR, Rocket Engine Component Mechanic at [facility]; ([phone]), who stated patient will be accepted at facility today. Patient is alert and oriented x2. Patient denies any suicidal or homicidal ideations. Patient is aware and agreeable with discharge plans. Patient has no supportive contact at this time. Patient will continue to follow-up with (psychiatrist) Dr. Sanz (psychiatrist) [address] [address]; ([phone]) and (Steam Tank Operator) Dr. Bar [address] [facility] [address], [place] [address]; ([phone]). Pt presents with euthymic mood and congruent affect. Addendum: 07/29/22 at 0837 by JAZMÍN QUISPE Patient refused to sign the homeless waiver upon discharge and a copy was placed in the chart. Homeless resources were provided and include 211 information line for shelters and homeless resources. A copy of all resources given to patient was also placed in the chart.
--- NOTE | 2022-07-29 08:45 | NUR ---
RN- NOTES MD ORDERED TO DISCONTINUE HOLD AND DISCHARGE PATIENT TO [facility], CONTINUE ALL MEDICATIONS INCLUDING PRN'S.
[2022-07-29] MEDS: ASPIRIN 81 MG TAB.CHEW PO SCH (09:01)
[2022-07-29] MEDS: METFORMIN 500 MG TABLET PO SCH (09:01)
[2022-07-29] MEDS: QUETIAPINE FUMARATE 25 MG TABLET PO SCH (09:01)
[2022-07-29] MEDS: ATORVASTATIN 40 MG TABLET PO SCH (09:02)
[2022-07-29] MEDS: ESCITALOPRAM OXALATE (10 MG) 10 MG TABLET PO SCH (09:02)
[2022-07-29 09:03] VITALS: BP 137/66
[2022-07-29] MEDS: BENAZEPRIL HCL 20 MG TABLET PO SCH (09:03)
[2022-07-29] MEDS: TAMSULOSIN 0.4 MG CAP.SR.24H PO SCH (09:04)
[2022-07-29] MEDS: GLUCERNA SHAKE 237 ML CAN PO SCH (09:36)
--- NOTE | 2022-07-29 11:51 | NUR ---
RN- NOTES PATIENT REFUSED INSULIN COVERAGE, BLOOD GLUCOSE NOTED AT 140. EDUCATION AND ENCOURAGEMENT X3 PROVIDED, PATIENT CONTINUES TO REFUSE.
--- NOTE | 2022-07-29 14:55 | NUR ---
RN- DISCHARGE NOTES PATIENT DISCHARGED TO [facility], [address] [place] [address] IN STABLE CONDITION. COMPLIANT WITH MEDICATIONS AND COOPERATIVE WITH TREATMENT PLANS. PATIENT DENIES SUICIDAL/HOMICIDAL IDEATION AND AUDITORY/VISUAL HALLUCINATIONS. BEHAVIOR IMPROVED, PSYCHIATRIC TREATMENT PLANS MET, MEDICAL TREATMENT PLANS DEFERRED FOR CONTINUAL MONITORING. EDUCATED PATIENT ABOUT AFTER PLAN CARE AND COPY PROVIDED. RETURNED ALL PERSONAL BELONGINGS TO PATIENT. MEDICATIONS RECONCILED WITH PSYCHIATRIST DR. MCCARTHY AND DESIGNER DR. ARGUELLO, PSYCHIATRIST ORDERED TO DISCONTINUE HOLD AND DISCHARGE TO [facility]. REPORT GIVEN TO RUIZ CULLEN AT [facility] FOR CONTINUITY OF CARE. PATIENT WITHOUT DISTRESS, CALM, AND COOPERATIVE. VITAL SIGNS TAKEN B/P 98/57, P 78, R 16, 02 SAT 100% ON ROOM AIR. PATIENT SIGNED ALL DISCHARGE PAPERWORK. PATIENT LEFT THE UNIT AT 1455 VIA AMBULANCE ON A GURNEY.
== END 2022-07-29 14:55 | DRG 885 ==
LOC: GPS 09:23
PROVIDERS: ADMIT Psychiatry & Neurology Psychiatry; ATTEND Nurse Practitioner Acute Care
DX: F33.3 Major depressive disorder, recurrent, severe with psychotic symptoms (principal); F03.94 Unspecified dementia, unspecified severity, with anxiety; N17.9 Acute kidney failure, unspecified; E11.65 Type 2 diabetes mellitus with hyperglycemia; E87.1 Hypo-osmolality and hyponatremia; E87.5 Hyperkalemia; I10 Essential (primary) hypertension; E78.5 Hyperlipidemia, unspecified; N40.0 Benign prostatic hyperplasia without lower urinary tract symptoms; H91.90 Unspecified hearing loss, unspecified ear; E88.09 Other disorders of plasma-protein metabolism, not elsewhere classified; Z20.822 Contact with and (suspected) exposure to COVID-19; H91.10 Presbycusis, unspecified ear
CPT/HCPCS: 36415; 80048-TC; 80053-TC; 80061-TC; 82962-TC; 84132-TC; 84295-TC; 84484-TC; J1815; J2060; J3490

== ENCOUNTER 2023-05-15 00:05 | Inpatient (IN) | payer MEDICARE, OTHER ==
[~2023-05-15] VITALS: Ht 175.3 cm; Wt 68.0 kg
[~2023-05-15 00:05] MED LIST changes: +ASPI-1169 PO; -CHOL4PAC PO; +ESCI5TAB PO; -FURO-145 PO; +METF-440 PO; -PIOG45TA5 PO
[2023-05-15 01:18] LABS: BASOPHILS % (AUTO) 0.2 % (0.0-2.0); EOSINOPHILS % (AUTO) 0.4 % (0.0-6.0); HEMATOCRIT 39 % (39-51); HEMOGLOBIN 12.5 g/dL (13.5-17.5); LYMPHOCYTES # (AUTO) 1.7 K/uL (0.8-4.8); LYMPHOCYTES % (AUTO) 15.2 % (20.0-44.0); MEAN CORPUSCULAR HEMOGLOBIN 27 PG (26.0-33.0); MEAN CORPUSCULAR HGB CONC 32 g/dl (31.0-36.0); MEAN CORPUSCULAR VOLUME 84 fL (80-96); MONOCYTES % (AUTO) 8.5 % (2.0-12.0); NEUTROPHILS # (AUTO) 8.7 K/uL (1.8-8.9); NEUTROPHILS % (AUTO) 75.7 % (43.0-81.0); PLATELET COUNT (AUTO) 192 K/uL (150-450); RED BLOOD CELL COUNT(AUTO) 4.64 MIL/uL (4.5-6.0); RED CELL DISTRIBUTION WIDTH 16.5 % (11.5-15.0); WHITE BLOOD COUNT (AUTO) 11.5 K/uL (4.3-11.0)
[2023-05-15 01:38] LABS: ALANINE AMINOTRANSFERASE 17 U/L (12-78); ALBUMIN 3.8 g/dL (3.4-5.0); ALCOHOL, BLOOD < 3 mg/dL (0-10); ALKALINE PHOSPHATASE 64 U/L (46-116); ASPARTATE AMINOTRANSFERASE 12 U/L (15-37); BILIRUBIN,DIRECT 0.1 mg/dL (0.0-0.2); BILIRUBIN,TOTAL 0.4 mg/dL (0.2-1.0); CALCIUM, SERUM 9.3 mg/dL (8.5-10.1); CARBON DIOXIDE 20 mmol/L (21-32); CHLORIDE 100 mmol/L (98-107); CREATININE 1.1 mg/dL (0.6-1.3); GLUCOSE 123 mg/dL (74-106); POTASSIUM 4.6 mmol/L (3.5-5.1); SODIUM SERUM 135 mmol/L (136-145); TOTAL PROTEIN, SERUM 7.5 g/dL (6.4-8.2); UREA NITROGEN, BLOOD 24 mg/dL (7-18)
[2023-05-15 01:45] LABS: ACETAMINOPHEN <10 ug/ml (10-30); SALICYLATE 0.5 mg/dL (2.8-20.0)
[2023-05-15 02:34] LABS: APPEARANCE,URINE CLEAR (CLEAR); BILIRUBIN,URINE NEGATIVE (NEGATIVE); BLOOD, URINE NEGATIVE Ery/uL (NEGATIVE); COLOR,URINE YELLOW (YELLOW); KETONES,URINE NEGATIVE (NEGATIVE); LEUKOCYTE ESTERASE ,URINE NEGATIVE (NEGATIVE); NITRITE, URINE NEGATIVE (NEGATIVE); PH,URINE 5.5 (5.0-8.0); PROTEIN,URINE NEGATIVE (NEGATIVE); UGLUCOSE NEGATIVE (NEGATIVE); UROBILINOGEN,URINE 0.2 EU/dL (0.2)
[2023-05-15] MEDS ORDERED: CHOL100034 PO (02:39)
[2023-05-15] MEDS ORDERED: INSU100V7 SQ (02:39)
[2023-05-15] MEDS ORDERED: QUET25TA PO (02:39)
[2023-05-15] MEDS ORDERED: LINA5TAB PO (02:39)
[2023-05-15] MEDS ORDERED: MAGN100T3 PO (02:39)
[2023-05-15 02:42] LABS: AMPHETAMINE, URINE NEGATIVE (NEGATIVE); BARBITURATE, URINE NEGATIVE (NEGATIVE); BENZODIAZEPINE, URINE NEGATIVE (NEGATIVE); CANNABINOID, URINE NEGATIVE (NEGATIVE); COCCAINE, URINE NEGATIVE (NEGATIVE); OPIATE, URINE NEGATIVE (NEGATIVE); PHENCYCLIDINE SCREEN,URINE NEGATIVE (NEGATIVE)
[2023-05-15] MEDS ORDERED: DEXTROSE 50%-WATER 50 ML DISP.SYRIN IV PRN (03:00)
[2023-05-15] MEDS ORDERED: LINAGLIPTIN 5 MG TABLET PO PRN (03:00)
[2023-05-15 03:30] VITALS: BP 133/85; TEMP 98.4; O2SAT 98
[2023-05-15] MEDS ORDERED: BLOOD SUGAR DIAGNOSTIC 1 EACH STRIP IN ONE (03:30)
[2023-05-15] MEDS ORDERED: MAG HYDROX/AL HYDROX/SIMETH 30 ML UDC PO PRN (03:30)
[2023-05-15] MEDS ORDERED: ZOLPIDEM TARTRATE 5 MG TABLET PO PRN (03:30)
[2023-05-15] MEDS ORDERED: ACETAMINOPHEN 325 MG TABLET PO PRN (03:30)
[2023-05-15] MEDS ORDERED: MAGNESIUM HYDROXIDE 30 ML UDC PO PRN (03:30)
[2023-05-15] MEDS ORDERED: LORAZEPAM 0.5 MG TABLET PO PRN (03:30)
[2023-05-15 06:42] VITALS: BP 133/85; TEMP 98.4; O2SAT 98
[2023-05-15 08:00] VITALS: BP 127/72; TEMP 97.9; O2SAT 98
[2023-05-15] MEDS ORDERED: MAGN400O6 PO (08:10)
[2023-05-15] MEDS ORDERED: ACET-868 PO (08:10)
[2023-05-15] MEDS ORDERED: NA P133E RC (08:10)
[2023-05-15] MEDS ORDERED: BISA10SU11 RC (08:10)
[2023-05-15] MEDS ORDERED: INSU100V28 SQ (08:10)
[2023-05-15] MEDS ORDERED: TYL2T PO (08:10)
[2023-05-15] MEDS ORDERED: MAG30ORA PO (08:10)
[2023-05-15] MEDS: BLOOD SUGAR DIAGNOSTIC 1 EACH STRIP IN SCH ×4 (08:24→21:40)
[2023-05-15] MEDS ORDERED: LINAGLIPTIN 5 MG TABLET PO SCH (09:00)
[2023-05-15] MEDS: CHOLECALCIFEROL 1,000 UNIT TABLET (VIT D3) PO SCH (09:02)
[2023-05-15] MEDS: ASPIRIN 81 MG TAB.CHEW PO SCH (09:02)
[2023-05-15] MEDS: LINAGLIPTIN 5 MG TABLET PO SCH (09:02)
[2023-05-15] MEDS: TAMSULOSIN 0.4 MG CAP.SR.24H PO SCH (09:02)
[2023-05-15] MEDS: METFORMIN 500 MG TABLET PO SCH ×2 (09:02→17:22)
[2023-05-15] MEDS: MAGNESIUM OXIDE 400 MG TABLET PO SCH (09:15)
[2023-05-15] MEDS: BENAZEPRIL HCL 20 MG TABLET PO SCH (09:15)
[2023-05-15] MEDS: INSULIN REGULAR, HUMAN 100 UNIT/ML 3 ML VIAL SQ PRN ×2 (12:04→21:45)
[2023-05-15 16:00] VITALS: BP 105/71; TEMP 98.6; O2SAT 99
[2023-05-15] MEDS: LORAZEPAM 0.5 MG TABLET PO PRN (17:43)
[2023-05-15 20:00] VITALS: BP 117/75; TEMP 98.4; O2SAT 100
[2023-05-15] MEDS: ATORVASTATIN 40 MG TABLET PO SCH (21:32)
[2023-05-15] MEDS: QUETIAPINE FUMARATE 25 MG TABLET PO SCH (21:32)
[2023-05-15] MEDS: INSULIN GLARGINE, 100 UNIT/ML CARTRIDGE SQ SCH (21:44)
[2023-05-16] MEDS: BLOOD SUGAR DIAGNOSTIC 1 EACH STRIP IN SCH ×4 (07:47→22:17)
[2023-05-16 08:00] VITALS: BP 118/68; TEMP 97.4; O2SAT 97
[2023-05-16] MEDS: ASPIRIN 81 MG TAB.CHEW PO SCH (08:21)
[2023-05-16] MEDS: METFORMIN 500 MG TABLET PO SCH ×2 (08:21→17:39)
[2023-05-16] MEDS: ESCITALOPRAM OXALATE (10 MG) 10 MG TABLET PO SCH (08:22)
[2023-05-16] MEDS: CHOLECALCIFEROL 1,000 UNIT TABLET (VIT D3) PO SCH (08:22)
[2023-05-16] MEDS: TAMSULOSIN 0.4 MG CAP.SR.24H PO SCH (08:22)
[2023-05-16] MEDS: LINAGLIPTIN 5 MG TABLET PO SCH (08:23)
[2023-05-16] MEDS: MAGNESIUM OXIDE 400 MG TABLET PO SCH (08:23)
[2023-05-16] MEDS: BENAZEPRIL HCL 20 MG TABLET PO SCH (08:47)
[2023-05-16] MEDS: QUETIAPINE FUMARATE 25 MG TABLET PO SCH ×3 (09:59→22:05)
[2023-05-16] MEDS ORDERED: OLANZAPINE 10 MG VIAL IM ONE (12:00)
[2023-05-16 16:00] VITALS: BP 101/83; TEMP 98.6; O2SAT 97
[2023-05-16] MEDS: INSULIN REGULAR, HUMAN 100 UNIT/ML 3 ML VIAL SQ PRN (17:45)
[2023-05-16 20:00] VITALS: BP 117/68; TEMP 97.9; O2SAT 99
[2023-05-16] MEDS: INSULIN GLARGINE, 100 UNIT/ML CARTRIDGE SQ SCH (22:00)
[2023-05-16] MEDS: ATORVASTATIN 40 MG TABLET PO SCH (22:05)
[2023-05-17 08:00] VITALS: BP 127/63; TEMP 98.6; O2SAT 100
[2023-05-17] MEDS: BLOOD SUGAR DIAGNOSTIC 1 EACH STRIP IN SCH ×4 (08:22→22:14)
[2023-05-17] MEDS: METFORMIN 500 MG TABLET PO SCH ×2 (08:23→17:26)
[2023-05-17] MEDS: LINAGLIPTIN 5 MG TABLET PO SCH (08:23)
[2023-05-17] MEDS: ASPIRIN 81 MG TAB.CHEW PO SCH (08:24)
[2023-05-17] MEDS: TAMSULOSIN 0.4 MG CAP.SR.24H PO SCH (08:24)
[2023-05-17] MEDS: ESCITALOPRAM OXALATE (10 MG) 10 MG TABLET PO SCH (08:24)
[2023-05-17] MEDS: MAGNESIUM OXIDE 400 MG TABLET PO SCH (08:24)
[2023-05-17] MEDS: BENAZEPRIL HCL 20 MG TABLET PO SCH (08:24)
[2023-05-17] MEDS: CHOLECALCIFEROL 1,000 UNIT TABLET (VIT D3) PO SCH (08:24)
[2023-05-17] MEDS: QUETIAPINE FUMARATE 25 MG TABLET PO SCH ×3 (08:28→22:05)
[2023-05-17 08:29] LABS: THYROID STIMULATING HORMONE 2.073 uIU/mL (0.358-3.74)
[2023-05-17] MEDS: INSULIN REGULAR, HUMAN 100 UNIT/ML 3 ML VIAL SQ PRN (11:57)
[2023-05-17 16:00] VITALS: BP 91/52; TEMP 98.6; O2SAT 98
[2023-05-17 20:00] VITALS: BP 102/55; TEMP 97.8; O2SAT 97
[2023-05-17] MEDS: ATORVASTATIN 40 MG TABLET PO SCH (22:05)
[2023-05-17] MEDS: INSULIN GLARGINE, 100 UNIT/ML CARTRIDGE SQ SCH (22:19)
[2023-05-18] MEDS: BLOOD SUGAR DIAGNOSTIC 1 EACH STRIP IN SCH ×4 (07:43→21:26)
[2023-05-18 08:00] VITALS: BP 113/74; TEMP 98.1; O2SAT 97
[2023-05-18] MEDS: LINAGLIPTIN 5 MG TABLET PO SCH (08:12)
[2023-05-18] MEDS: METFORMIN 500 MG TABLET PO SCH ×2 (08:12→17:24)
[2023-05-18] MEDS: ESCITALOPRAM OXALATE (10 MG) 10 MG TABLET PO SCH (08:13)
[2023-05-18] MEDS: MAGNESIUM OXIDE 400 MG TABLET PO SCH (08:13)
[2023-05-18] MEDS: TAMSULOSIN 0.4 MG CAP.SR.24H PO SCH (08:13)
[2023-05-18] MEDS: BENAZEPRIL HCL 20 MG TABLET PO SCH (08:13)
[2023-05-18] MEDS: CHOLECALCIFEROL 1,000 UNIT TABLET (VIT D3) PO SCH (08:13)
[2023-05-18] MEDS: QUETIAPINE FUMARATE 25 MG TABLET PO SCH ×3 (08:13→21:20)
[2023-05-18] MEDS: ASPIRIN 81 MG TAB.CHEW PO SCH (08:13)
[2023-05-18 16:00] VITALS: BP 100/60; TEMP 98.1; O2SAT 97
[2023-05-18] MEDS: ATORVASTATIN 40 MG TABLET PO SCH (21:21)
[2023-05-18 21:25] VITALS: BP 112/67; TEMP 98; O2SAT 99
[2023-05-18] MEDS: INSULIN GLARGINE, 100 UNIT/ML CARTRIDGE SQ SCH (21:30)
[2023-05-19] MEDS: BLOOD SUGAR DIAGNOSTIC 1 EACH STRIP IN SCH ×4 (07:34→21:29)
[2023-05-19 08:00] VITALS: BP 114/71; TEMP 98.1; O2SAT 97
[2023-05-19] MEDS: ASPIRIN 81 MG TAB.CHEW PO SCH (08:07)
[2023-05-19] MEDS: BENAZEPRIL HCL 20 MG TABLET PO SCH (08:07)
[2023-05-19] MEDS: CHOLECALCIFEROL 1,000 UNIT TABLET (VIT D3) PO SCH (08:07)
[2023-05-19] MEDS: TAMSULOSIN 0.4 MG CAP.SR.24H PO SCH (08:08)
[2023-05-19] MEDS: ESCITALOPRAM OXALATE (10 MG) 10 MG TABLET PO SCH (08:08)
[2023-05-19] MEDS: METFORMIN 500 MG TABLET PO SCH ×2 (08:08→17:39)
[2023-05-19] MEDS: QUETIAPINE FUMARATE 25 MG TABLET PO SCH ×3 (08:08→21:28)
[2023-05-19] MEDS: LINAGLIPTIN 5 MG TABLET PO SCH (08:08)
[2023-05-19] MEDS: MAGNESIUM OXIDE 400 MG TABLET PO SCH (08:08)
[2023-05-19 16:00] VITALS: BP 104/71; TEMP 97.9; O2SAT 98
[2023-05-19 20:00] VITALS: BP 119/88; TEMP 97.9; O2SAT 97
[2023-05-19] MEDS: ATORVASTATIN 40 MG TABLET PO SCH (21:28)
[2023-05-19] MEDS: INSULIN GLARGINE, 100 UNIT/ML CARTRIDGE SQ SCH (21:30)
[2023-05-20 08:00] VITALS: BP 128/76; TEMP 97.6; O2SAT 98
[2023-05-20] MEDS: BENAZEPRIL HCL 20 MG TABLET PO SCH (08:42)
[2023-05-20] MEDS: METFORMIN 500 MG TABLET PO SCH ×2 (08:42→17:23)
[2023-05-20] MEDS: CHOLECALCIFEROL 1,000 UNIT TABLET (VIT D3) PO SCH (08:42)
[2023-05-20] MEDS: QUETIAPINE FUMARATE 25 MG TABLET PO SCH ×3 (08:43→21:10)
[2023-05-20] MEDS: ESCITALOPRAM OXALATE (10 MG) 10 MG TABLET PO SCH (08:43)
[2023-05-20] MEDS: MAGNESIUM OXIDE 400 MG TABLET PO SCH (08:43)
[2023-05-20] MEDS: LINAGLIPTIN 5 MG TABLET PO SCH (08:43)
[2023-05-20] MEDS: ASPIRIN 81 MG TAB.CHEW PO SCH (08:43)
[2023-05-20] MEDS: BLOOD SUGAR DIAGNOSTIC 1 EACH STRIP IN SCH ×4 (08:43→21:15)
[2023-05-20] MEDS: TAMSULOSIN 0.4 MG CAP.SR.24H PO SCH (08:44)
[2023-05-20] MEDS: LORAZEPAM 0.5 MG TABLET PO PRN (13:21)
[2023-05-20 16:00] VITALS: BP 107/60; TEMP 97.8; O2SAT 96
[2023-05-20 21:08] VITALS: BP 106/64; TEMP 97.8; O2SAT 99
[2023-05-20] MEDS: ATORVASTATIN 40 MG TABLET PO SCH (21:10)
[2023-05-20] MEDS: INSULIN GLARGINE, 100 UNIT/ML CARTRIDGE SQ SCH (21:44)
[2023-05-21 08:00] VITALS: BP 107/70; TEMP 98.1; O2SAT 98
[2023-05-21] MEDS: BLOOD SUGAR DIAGNOSTIC 1 EACH STRIP IN SCH ×4 (08:04→21:25)
[2023-05-21] MEDS: METFORMIN 500 MG TABLET PO SCH ×2 (09:12→17:21)
[2023-05-21] MEDS: QUETIAPINE FUMARATE 25 MG TABLET PO SCH ×3 (09:12→21:30)
[2023-05-21] MEDS: TAMSULOSIN 0.4 MG CAP.SR.24H PO SCH (09:12)
[2023-05-21] MEDS: ESCITALOPRAM OXALATE (10 MG) 10 MG TABLET PO SCH (09:12)
[2023-05-21] MEDS: LINAGLIPTIN 5 MG TABLET PO SCH (09:13)
[2023-05-21] MEDS: MAGNESIUM OXIDE 400 MG TABLET PO SCH (09:13)
[2023-05-21] MEDS: ASPIRIN 81 MG TAB.CHEW PO SCH (09:13)
[2023-05-21] MEDS: BENAZEPRIL HCL 20 MG TABLET PO SCH (09:13)
[2023-05-21] MEDS: CHOLECALCIFEROL 1,000 UNIT TABLET (VIT D3) PO SCH (09:13)
[2023-05-21 16:00] VITALS: BP 112/71; TEMP 98.1; O2SAT 100
[2023-05-21 20:00] VITALS: BP 109/68; TEMP 98.4; O2SAT 96
[2023-05-21] MEDS: ATORVASTATIN 40 MG TABLET PO SCH (21:30)
[2023-05-21] MEDS: INSULIN GLARGINE, 100 UNIT/ML CARTRIDGE SQ SCH (21:44)
[2023-05-22 08:00] VITALS: BP 119/71; TEMP 97.6; O2SAT 100
[2023-05-22] MEDS: BLOOD SUGAR DIAGNOSTIC 1 EACH STRIP IN SCH ×4 (08:11→22:10)
[2023-05-22] MEDS: TAMSULOSIN 0.4 MG CAP.SR.24H PO SCH (08:24)
[2023-05-22] MEDS: QUETIAPINE FUMARATE 25 MG TABLET PO SCH ×3 (08:25→21:36)
[2023-05-22] MEDS: CHOLECALCIFEROL 1,000 UNIT TABLET (VIT D3) PO SCH (08:25)
[2023-05-22] MEDS: LINAGLIPTIN 5 MG TABLET PO SCH (08:25)
[2023-05-22] MEDS: METFORMIN 500 MG TABLET PO SCH ×2 (08:25→17:02)
[2023-05-22] MEDS: BENAZEPRIL HCL 20 MG TABLET PO SCH (08:25)
[2023-05-22] MEDS: ASPIRIN 81 MG TAB.CHEW PO SCH (08:25)
[2023-05-22] MEDS: MAGNESIUM OXIDE 400 MG TABLET PO SCH (08:25)
[2023-05-22] MEDS: ESCITALOPRAM OXALATE (10 MG) 10 MG TABLET PO SCH (08:25)
[2023-05-22 16:00] VITALS: BP 96/51; TEMP 97.8; O2SAT 100
[2023-05-22 20:00] VITALS: BP 102/91; TEMP 98.1; O2SAT 99
[2023-05-22] MEDS: ATORVASTATIN 40 MG TABLET PO SCH (21:36)
[2023-05-22] MEDS: INSULIN GLARGINE, 100 UNIT/ML CARTRIDGE SQ SCH (22:00)
[2023-05-23] MEDS: BLOOD SUGAR DIAGNOSTIC 1 EACH STRIP IN SCH ×2 (07:41→11:46)
[2023-05-23 08:00] VITALS: BP 129/80; TEMP 97.8; O2SAT 98
[2023-05-23] MEDS: ESCITALOPRAM OXALATE (10 MG) 10 MG TABLET PO SCH (09:17)
[2023-05-23] MEDS: ASPIRIN 81 MG TAB.CHEW PO SCH (09:17)
[2023-05-23] MEDS: TAMSULOSIN 0.4 MG CAP.SR.24H PO SCH (09:17)
[2023-05-23 09:18] VITALS: BP 129/80
[2023-05-23] MEDS: METFORMIN 500 MG TABLET PO SCH (09:18)
[2023-05-23] MEDS: QUETIAPINE FUMARATE 25 MG TABLET PO SCH (09:18)
[2023-05-23] MEDS: CHOLECALCIFEROL 1,000 UNIT TABLET (VIT D3) PO SCH (09:18)
[2023-05-23] MEDS: BENAZEPRIL HCL 20 MG TABLET PO SCH (09:18)
[2023-05-23] MEDS: LINAGLIPTIN 5 MG TABLET PO SCH (09:18)
[2023-05-23] MEDS: MAGNESIUM OXIDE 400 MG TABLET PO SCH (09:19)
[2023-05-23] MEDS: INSULIN REGULAR, HUMAN 100 UNIT/ML 3 ML VIAL SQ PRN (11:51)
[2023-05-23] MEDS ORDERED: LORAZEPAM INJ 2 MG/ML VIAL IM ONE (13:30)
== END 2023-05-23 13:50 | DRG 885 ==
LOC: ER 00:23 → GPS 02:35
PROVIDERS: ADMIT Psychiatry & Neurology Psychiatry; ATTEND Nurse Practitioner Acute Care
DX: F31.5 Bipolar disorder, current episode depressed, severe, with psychotic features (principal); F03.918 Unspecified dementia, unspecified severity, with other behavioral disturbance; F03.93 Unspecified dementia, unspecified severity, with mood disturbance; E87.1 Hypo-osmolality and hyponatremia; F29 Unspecified psychosis not due to a substance or known physiological condition; N40.0 Benign prostatic hyperplasia without lower urinary tract symptoms; Z79.899 Other long term (current) drug therapy; Z91.199 Patient's noncompliance with other medical treatment and regimen due to unspecified reason; Z79.84 Long term (current) use of oral hypoglycemic drugs; E11.40 Type 2 diabetes mellitus with diabetic neuropathy, unspecified; Z87.2 Personal history of diseases of the skin and subcutaneous tissue; Z79.82 Long term (current) use of aspirin; Z73.6 Limitation of activities due to disability; E78.5 Hyperlipidemia, unspecified; E86.0 Dehydration; R79.89 Other specified abnormal findings of blood chemistry; I10 Essential (primary) hypertension; M62.84 Sarcopenia
CPT/HCPCS: 36415; 80048-TC; 80061-TC; 80076-TC; 82565-TC; 82962-TC; 84443-TC; 85025-TC; 97110-TC; 97116-TC; 97530-TC; G0480; J1815; J2060; J3490

== ENCOUNTER 2024-10-13 22:37 | Inpatient (IN) | payer MEDICARE, OTHER ==
[~2024-10-13] VITALS: Ht 167.6 cm; Wt 58.1 kg
[~2024-10-13 22:37] MED LIST changes: +ACET-868 PO; +BISA10SU11 RC; +CHOL100034 PO; -ESCI5TAB PO; +INSU100V28 SQ; +INSU100V7 SQ; +LINA5TAB PO; +MAG30ORA PO; +MAGN100T3 PO; +MAGN400O6 PO; +NA P133E RC; +QUET25TA PO; -SITA100T PO; +TYL2T PO
[2024-10-13 23:36] LABS: PLATELET COUNT (AUTO) 208 K/uL (150-450); RED BLOOD CELL COUNT(AUTO) 4.84 MIL/uL (4.5-6.0); RED CELL DISTRIBUTION WIDTH 16.1 % (11.5-15.0); WHITE BLOOD COUNT (AUTO) 9.1 K/uL (4.3-11.0)
[2024-10-13 23:43] LABS: CALCIUM, SERUM 9.1 mg/dL (8.5-10.1); CREATININE 1.0 mg/dL (0.6-1.3); SODIUM SERUM 135 mmol/L (136-145); UREA NITROGEN, BLOOD 17 mg/dL (7-18)
[2024-10-13 23:48] LABS: ASPARTATE AMINOTRANSFERASE 12 U/L (15-37); TOTAL PROTEIN, SERUM 7.1 g/dL (6.4-8.2)
[2024-10-13 23:49] LABS: ALCOHOL, BLOOD < 3 mg/dL (0-10)
[2024-10-14 00:45] LABS: APPEARANCE,URINE CLEAR (CLEAR); BLOOD, URINE NEGATIVE Ery/uL (NEGATIVE); LEUKOCYTE ESTERASE ,URINE NEGATIVE (NEGATIVE); NITRITE, URINE NEGATIVE (NEGATIVE); UGLUCOSE NEGATIVE (NEGATIVE)
[2024-10-14 00:46] LABS: AMPHETAMINE, URINE NEGATIVE (NEGATIVE); BARBITURATE, URINE NEGATIVE (NEGATIVE); BENZODIAZEPINE, URINE NEGATIVE (NEGATIVE); CANNABINOID, URINE NEGATIVE (NEGATIVE); COCCAINE, URINE NEGATIVE (NEGATIVE); OPIATE, URINE NEGATIVE (NEGATIVE)
[2024-10-14] MEDS ORDERED: ESCI10TA PO (04:56)
[2024-10-14] MEDS ORDERED: NA P133E RC (04:56)
[2024-10-14] MEDS ORDERED: NITR0.4T SL (04:56)
[2024-10-14 05:25] VITALS: BP 110/66; TEMP 98.2; O2SAT 98
[2024-10-14] MEDS ORDERED: ZOLPIDEM TARTRATE 5 MG TABLET PO PRN (05:30)
[2024-10-14] MEDS ORDERED: LORAZEPAM 1 MG TABLET PO PRN (05:30)
[2024-10-14] MEDS ORDERED: MAG HYDROX/AL HYDROX/SIMETH 30 ML UDC PO PRN (05:30)
[2024-10-14] MEDS ORDERED: MAGNESIUM HYDROXIDE 30 ML UDC PO PRN (05:30)
[2024-10-14] MEDS: BLOOD SUGAR DIAGNOSTIC 1 EACH STRIP IN ONE (06:02)
[2024-10-14 08:00] VITALS: BP 127/76; TEMP 98; O2SAT 96
[2024-10-14] MEDS ORDERED: QUET50TA PO (09:44)
[2024-10-14] MEDS ORDERED: MAGN200T4 PO (09:44)
[2024-10-14] MEDS ORDERED: CHOL100062 PO (09:44)
[2024-10-14] MEDS ORDERED: DEXTROSE 50%-WATER 50 ML DISP.SYRIN IV PRN (11:30)
[2024-10-14] MEDS ORDERED: NITROGLYCERIN 0.4 MG/TAB BOTTLE SL PRN (11:30)
[2024-10-14] MEDS: BLOOD SUGAR DIAGNOSTIC 1 EACH STRIP IN SCH (12:12)
[2024-10-14] MEDS: LORAZEPAM 0.5 MG TABLET PO PRN (12:40)
[2024-10-14 16:00] VITALS: BP 129/73; TEMP 98.1; O2SAT 99
[2024-10-14] MEDS: OLANZAPINE 2.5 MG TABLET PO SCH (16:10)
[2024-10-14] MEDS: METFORMIN 500 MG TABLET PO SCH (16:11)
[2024-10-14 20:00] VITALS: BP 100/65; TEMP 97.5; O2SAT 98
[2024-10-14] MEDS: ATORVASTATIN 40 MG TABLET PO SCH (22:14)
[2024-10-14] MEDS: INSULIN GLARGINE, 100 UNIT/ML CARTRIDGE SQ SCH (22:30)
[2024-10-15 08:00] VITALS: BP 121/88; TEMP 97.6; O2SAT 100
[2024-10-15] MEDS: LINAGLIPTIN 5 MG TABLET PO SCH (08:53)
[2024-10-15] MEDS: CHOLECALCIFEROL 1,000 UNIT TABLET (VIT D3) PO SCH (08:53)
[2024-10-15] MEDS: TAMSULOSIN 0.4 MG CAP.SR.24H PO SCH (08:53)
[2024-10-15] MEDS: ASPIRIN 81 MG TAB.CHEW PO SCH (08:53)
[2024-10-15] MEDS: ESCITALOPRAM OXALATE (10 MG) 10 MG TABLET PO SCH (08:54)
[2024-10-15] MEDS: BENAZEPRIL HCL 20 MG TABLET PO SCH (08:54)
[2024-10-15 11:13] LABS: LDL 37 mg/dL (0-99)
[2024-10-15 11:15] LABS: ASPARTATE AMINOTRANSFERASE 18.0 U/L (15-37); CALCIUM, SERUM 9.4 mg/dL (8.5-10.1); CREATININE 0.9 mg/dL (0.6-1.3); SODIUM SERUM 138.0 mmol/L (136-145); TOTAL PROTEIN, SERUM 7.9 g/dL (6.4-8.2); UREA NITROGEN, BLOOD 14.0 mg/dL (7-18)
[2024-10-15 16:01] VITALS: BP 109/81; TEMP 98.2; O2SAT 98
[2024-10-15 20:00] VITALS: BP 109/60; TEMP 98; O2SAT 98
[2024-10-15 22:46] VITALS: BP 109/60; TEMP 98; O2SAT 98
[2024-10-16 08:00] VITALS: BP 114/68; TEMP 98.6; O2SAT 97
[2024-10-16 16:00] VITALS: BP 100/60; TEMP 98; O2SAT 100
[2024-10-16 20:10] VITALS: BP 110/68; TEMP 97.7; O2SAT 98
[2024-10-16] MEDS: INSULIN REGULAR, HUMAN 100 UNIT/ML 3 ML VIAL SQ PRN (21:53)
[2024-10-17 08:00] VITALS: BP 100/53; TEMP 97.9; O2SAT 99
[2024-10-17] MEDS: OLANZAPINE 10 MG VIAL IM ONE (10:28)
[2024-10-17 16:00] VITALS: BP 107/76; TEMP 97.5; O2SAT 97
[2024-10-17 20:11] VITALS: BP 129/77; TEMP 97.6; O2SAT 98
[2024-10-17] MEDS: ACETAMINOPHEN 325 MG TABLET PO PRN (20:42)
[2024-10-18 08:00] VITALS: BP 114/70; TEMP 98.6; O2SAT 97
[2024-10-18] MEDS: OLANZAPINE 2.5 MG TABLET PO SCH (08:55)
[2024-10-18 16:00] VITALS: BP 100/58; TEMP 98.1; O2SAT 100
[2024-10-18 20:13] VITALS: BP 141/74; TEMP 98; O2SAT 96
[2024-10-19 08:00] VITALS: BP 115/66; TEMP 97.8; O2SAT 97
[2024-10-19 16:03] VITALS: BP 103/50; TEMP 98.4; O2SAT 98
[2024-10-19 19:56] VITALS: BP 122/104; TEMP 98.4; O2SAT 97
[2024-10-20 08:00] VITALS: BP 129/62; TEMP 97.8; O2SAT 99
[2024-10-20 16:00] VITALS: BP 101/57; TEMP 98.2; O2SAT 99
[2024-10-20] MEDS: OLANZAPINE 2.5 MG TABLET PO SCH (17:24)
[2024-10-20 20:18] VITALS: BP 107/63; TEMP 97.7; O2SAT 97
[2024-10-21 08:00] VITALS: BP 144/63; TEMP 98; O2SAT 97
[2024-10-21 16:00] VITALS: BP 90/54; TEMP 97.9; O2SAT 99
[2024-10-21 20:11] VITALS: BP 109/65; TEMP 98; O2SAT 99
[2024-10-22 08:00] VITALS: BP 124/67; TEMP 97.8; O2SAT 97
[2024-10-22 16:03] VITALS: BP 119/64; TEMP 98.1; O2SAT 98
[2024-10-22 21:00] VITALS: BP 115/65; TEMP 98; O2SAT 98
[2024-10-23 08:00] VITALS: BP 140/72; TEMP 98.2; O2SAT 100
[2024-10-23 16:00] VITALS: BP 104/65; TEMP 98.1; O2SAT 100
[2024-10-23 20:59] VITALS: BP 104/67; TEMP 98.2; O2SAT 97
[2024-10-24 08:08] VITALS: BP 105/64; TEMP 97.9; O2SAT 97
[2024-10-24 16:00] VITALS: BP 95/58; TEMP 98; O2SAT 100
[2024-10-24 20:29] VITALS: BP 110/65; TEMP 97.8; O2SAT 97
[2024-10-25 08:00] VITALS: BP 108/60; TEMP 97.8; O2SAT 98
[2024-10-25 16:00] VITALS: BP 126/66; TEMP 97.8; O2SAT 97
[2024-10-25 20:10] VITALS: BP 120/60; TEMP 97.8; O2SAT 100
[2024-10-26 08:00] VITALS: BP 120/71; TEMP 98.1; O2SAT 100
[2024-10-26 16:00] VITALS: BP 117/63; TEMP 98.1; O2SAT 98
[2024-10-26 19:54] VITALS: BP 109/58; TEMP 98.2; O2SAT 100
[2024-10-27 08:00] VITALS: BP 125/70; TEMP 98.1; O2SAT 100
[2024-10-27 08:58] VITALS: BP 123/70
== END 2024-10-27 13:30 | DRG 885 ==
LOC: ER 22:47 → GPS 10-14 04:56
PROVIDERS: ADMIT Psychiatry & Neurology Psychiatry
DX: F33.3 Major depressive disorder, recurrent, severe with psychotic symptoms (principal); F03.93 Unspecified dementia, unspecified severity, with mood disturbance; F03.94 Unspecified dementia, unspecified severity, with anxiety; F03.911 Unspecified dementia, unspecified severity, with agitation; F29 Unspecified psychosis not due to a substance or known physiological condition; F41.9 Anxiety disorder, unspecified; I10 Essential (primary) hypertension; E78.5 Hyperlipidemia, unspecified; E11.40 Type 2 diabetes mellitus with diabetic neuropathy, unspecified; N40.0 Benign prostatic hyperplasia without lower urinary tract symptoms; M62.84 Sarcopenia; Z86.19 Personal history of other infectious and parasitic diseases; Z79.4 Long term (current) use of insulin; Z79.82 Long term (current) use of aspirin; Z79.84 Long term (current) use of oral hypoglycemic drugs; Z91.148 Patient's other noncompliance with medication regimen for other reason; Z79.899 Other long term (current) drug therapy; F39 Unspecified mood [affective] disorder; Z73.6 Limitation of activities due to disability
CPT/HCPCS: 36415; 80048-TC; 80053-TC; 80061-TC; 80076-TC; 82962-TC; 85025-TC; 87081-TC; 97110-TC; 97116-TC; 97530-TC; G0480; J1815; J3490